=== PATIENT | female | born 1970 | race Caucasian/White ===

== ENCOUNTER 2016-08-11 14:43 | Emergency (ER) | payer MEDICARE, MEDICAID ==
[~2016-08-11] VITALS: Ht 160 cm; Wt 80.3 kg
[~2016-08-11 14:43] MED LIST: ALBU17AE3; AMOX-355 PO; ARIP2TAB10 PO; AZTH250C PO; BUDE6HFA; BUPR100T6 PO; CEFD300C3 PO; CIPR500T4 PO; CLON0.5T3; CYCL10TA9 PO; D50KC PO; DESV50TA; DIAZ5TAB3 PO; DICL50TA3 PO; EST.1TD TOP; FLUO40CA12; FLUT16SP22 NS; FLX20C; HYDR-2890 PO; HYDR-3583 PO; HYDR-3720 PO; HYDR1CAP2; HYOS0.378 PO; KETO-22; MECL-124 PO; METH15TA; METO-354 PO; MTC10T PO; MTF500T PO; MULT-608 PO; NF-ESOM40C PO; NITR-65 PO; ONDA-42 SL; ONDA8TAB13 PO; OXYC-12 PO; PHEN-639 PO; PHEN37.53 PO; PHEN37.555; PNT40TEC PO; PRCD5U GT; PROM12.59 PO; PROP10TA8; PROP10TA8 PO; SCOP1PAT TD; SULF1TAB38; SULF1TAB38 PO; TOPI100T PO; TRAM-21 PO; TRAM50TA2 PO; TRAZ150T42 PO; YAZ; ZLP10T PO; [UNRECOGNIZED DRUG - OTHER]; [UNRECOGNIZED DRUG - OTHER]; savella PO
--- OUTSIDE RECORDS SUMMARY | 2016-08-11 14:51 | XMS REPORT | Continuity of Care Document ---
Author Author Interface Organization Interface Address Unknown Phone Unavailable Problems Problem Status Onset Date Classification Date Reported Comments Source Carpal tunnel syndrome (disorder) Active Problem 2013 [facility] Obesity, unspecified Active Problem 01/26/2014 <sup>1</sup>Added based on documentation of BMI=45.5. [facility] Obesity (disorder) Active Problem 10/01/2013 <sup>1</sup>Added based on documentation of BMI=45.5. [facility] Medications Medication Details Route Status Patient Instructions Ordering Provider Order Date Source Savella 100 mg oral tablet =100 mg, 1 tab, PO, BID, # 60 tab, 3 Refill(s), tab Active [facility] Maxalt 10 mg oral tablet =10 mg, 1 tab, PO, ONCE, PRN for migraine headache, may repeat in 2 hours if response unsatisfactory, # 12 tab, 5 Refill(s) </br>may repeat in 2 hours if response unsatisfactory [facility] tizanidine 4 mg oral tablet 8 mg 2 tab, PO, Q8H, # 180 tab, 5 Refill(s) [facility] meloxicam 15 mg oral tablet =15 mg, 1 tab, PO, Daily, # 30 tab, 5 Refill(s) Active [facility] ProAir HFA 90 mcg/inh inhalation aerosol with adapter 2 puff, Inhalation, four times per day, # 1 EA, 11 Refill(s) Active [facility] Wellbutrin 100 mg oral tablet =100 mg, 1 tab, PO, BID , # 60 tab, 5 Refill(s), tab Active [facility] Flexeril 10 mg oral tablet =10 mg, 1 tab, PO, BID, # 60 tab, 5 Refill(s), Pharmacy [facility], tab Active [facility] Bentyl 20 mg oral tablet =20 mg, 1 tab, PO, four times per day, # 120 tab, 5 Refill(s), Pharmacy [facility], tab Active [facility] promethazine 25 mg oral tablet =25 mg, 1 tab, PO, BID , X 30 Days, # 60 tab, 1 Refill(s), Pharmacy [facility], tab Inactive [facility] Prozac 40 mg oral capsule =80 mg, 2 cap, PO, Daily, # 60 cap, 1 Refill(s), Pharmacy [facility], cap Active [facility] diazepam 5 mg oral tablet See Instructions, take 1 tablet by mouth as needed during daytime, 1 tablet by mouth at night, # 60 tab , 5 Refill(s), called to pharmacy (Rx), tab </br>take 1 tablet by mouth as needed during daytime, 1 tablet by mouth at night Inactive [facility] Zofran 4 mg oral tablet =4 mg, 1 tab, PO, Q8H, PRN for nausea/vomiting, X 5 Days, # 15 tab, 0 Refill(s) Inactive [facility] trazodone PO Active [facility] Nexium PO, Daily Active [facility] ProAir HFA 90 mcg inh puff, Inhalation, four times per day Active [facility] diclofenac sodium 75 mg oral enteric coated tablet = 75 mg, 1 tab, PO, BID, # 60 tab Active [facility] pravastatin 20 mg oral tablet =20 mg, 1 tab, PO, Daily , # 30 tab, 5 Refill(s), Pharmacy [facility], tab Active [facility] amitriptyline 100 mg oral tablet =100 mg, 1 tab, PO, QHS, # 30 tab, 5 Refill(s), tab Active [facility] Morrill 325 mg-10 mg oral tablet 1 tab, PO, Q6H, # 30 tab, 1 Refill(s) Inactive [facility] Allergies, Adverse Reactions, Alerts Substance Category Reaction Severity Reaction type Status Date Reported Comments Source doxycycline drug allergy Allergy Active [facility] Immunizations Immunization Date Given Site Status Last Updated Comments Source Results Order Name Results Value Reference Range Date Interpretation Comments Source Patient Viewable Results AST 23 IU/L 15 - 41 09/13/2013 [facility] Patient Viewable Results ALT 22 IU/L 14 - 54 09/13/2013 [facility] Patient Viewable Results Alkaline Phosphatase 85 IU/L 32 - 91 09/13/2013 [facility] Patient Viewable Results Total Protein 8.3 g/dL 6.1 - 7.9 09/13/2013 [facility] Patient Viewable Results Glucose 100 mg/dL 70 - [address] [facility] Patient Viewable Results HGB A1C 5.6 % 4.6 - 6.2 2013 [facility] Patient Viewable Results LDL 144 mg/dL 65 - 175 2013 <sup>1</sup>Result Note : Result added by Discern Expert [facility] Patient Viewable Results Cholesterol 224 mg/dL 0 - 200 [facility] Patient Viewable Results BUN 20 mg/dL 8 - 20 09/13/2013 [facility] Patient Viewable Results GFR -[place] null >=60 <sup>1</sup>Result Note: Resulted by GLB_CHEM_GFR rule. [facility] Patient Viewable Results GFR Non -[place] 80 mL/min/1.73m2 >=60 09/13/2013 < sup>2</sup>Result Note: Resulted by GLB_CHEM_GFR rule. [facility] Patient Viewable Results BUN/CREA RATIO 22.22 12.10 - 20.10 09/13/2013 [facility] Patient Viewable Results GLOBULIN 3.8 g/dL 2.6 - 3.2 [facility] Patient Viewable Results Triglyceride 132 mg/dL 00 - 150 09/30/2013 [facility] Patient Viewable Results HDL 54 mg/dL 40 - 60 09/30/2013 [facility] Patient Viewable Results VLDL 26 mg/dL 09/30/2013 <sup>2</sup>Result Note: Result added by Discern Expert <sup>3</sup>Interpretive Data: CORONARY HEART DISEASE RISK ESTIMATE </br> -----RELATIVE RISK--------- --- </br>TEST UNITS LOW MODERATE HIGH </br> </br>CHOLESTEROL mg/dL <200 200-239 >240 </br>HDL mg/dL >45 35-45 <35 </br> </br>OPTIMAL LDL: <100 mg/dL </br>ABOVE OPTIMAL LDL: 100-129 mg/dL </br>BORDERLINE HIGH LDL: 130-159 mg/dL </br>HIGH LDL: 160-189 mg/dL </br>VERY HIGH LDL: >190 mg/dL [facility] Patient Viewable Results Brain Natriuretic Peptide null 0 - 100 09/30/2013 [facility] Patient Viewable Results A/G RATIO 1.18 1.30 - 1.50 LOW [facility] Patient Viewable Results Glucose POC 82 mg/dL 64 - 108 [facility] Patient Viewable Results Troponin I 0.01 ng/mL 0.00 - 0.06 09/30/2013 <sup>4</sup> Interpretive Data: TROPONIN-I INTERPRETIVE GUIDELINES </br>Cardiac Troponin-I is a sensitive and specific marker of myocardialinjury. It typically begins </br>to rise 4 - 8 hours after the onset of symptoms, peaks at 12 hours, and remains elevated for at </br>least 5 - 9 days. </br> </br>A cardiac Troponin-I value of greater than 1.2 ng/ml is diagnostic of an acute myocardial </br>infarct in the appropriate clinical setting. [facility] Patient Viewable Results Troponin I 0.01 ng/mL 0.00 - 0.06 09/29/2013 <sup>5</sup> Interpretive Data: TROPONIN-I INTERPRETIVE GUIDELINES </br>Cardiac Troponin-I is a sensitive and specific marker of myocardialinjury. It typically begins </br>to rise 4 - 8 hours after the onset of symptoms, peaks at 12 hours, and remains elevated for at </br>least 5 - 9 days. </br> </br>A cardiac Troponin-I value of greater than 1.2 ng/ml is diagnostic of an acute myocardial </br>infarct in the appropriate clinical setting. [facility] Patient Viewable Results Eosinophils Absolute 0.3 /cmm 09/13/2013 [facility] Patient Viewable Results Immature Granulocytes Absolute 0.0 /cmm 09/13/2013 [facility] Patient Viewable Results Basophils Absolute 0.0 /cmm [facility] Patient Viewable Results Polys Absolute 5.8 /cmm 2013 [facility] Patient Viewable Results Lymphocytes Absolute 2.8 /cmm 09/13/2013 [facility] Patient Viewable Results Monocytes Absolute 0.1 /cmm [facility] Patient Viewable Results Basophils 0 % 0 - 2 09/13/2013 [facility] Patient Viewable Results Monocytes 1 % 1 - 9 09/13/2013 [facility] Patient Viewable Results Bands 7 % 0 - 10 09/13/2013 [facility] Patient Viewable Results Lymphocytes 31 % 22 - 50 2013 [facility] Patient Viewable Results Polys 58 % 45 - 74 09/13/2013 [facility] Patient Viewable Results Eosinophils 3 % 1 - 8 2013 [facility] Patient Viewable Results Myelocytes 0 % 09/13/2013 [facility] Patient Viewable Results Metamyelocytes 0 % 09/13/2013 [facility] Patient Viewable Results Plt Estimate Adequate <sup>6</sup> </br>(09/13/2013 09:40:00) <sup> </sup> Adequate 09/13/2013 <sup>6</sup>Interpretive Data: Adequate 150,000-400,000 </br>Decreased 50,000-150,000 </br>Marked Decrease <50,000 </br>Increased 400,000-600,000 </br>Marked Increase >600,000 [facility] Patient Viewable Results Promyelocytes 0 % 09/13/2013 [facility] Patient Viewable Results RBC Morph Normal </br>(09/13/2013 09:40:00) <sup> </sup> Normal 09/13/2013 [facility] Patient Viewable Results Blasts 0 % <=0 09/13/2013 [facility] Patient Viewable Results Baso 0.00 10^3/cmm 0.00 - 0.15 09/13/2013 [facility] Patient Viewable Results [place] 0.6 10^3/cmm 0.0 - 0.6 [facility] Patient Viewable Results Eos 0.10 10^3/cmm 0.00 - 0.70 [facility] Patient Viewable Results Lymph 2.5 10^3/cmm 1.2 - 3.5 [facility] Patient Viewable Results Eos % 1.3 % 1.0 - 8.0 2013 [facility] Patient Viewable Results [place] % 6.6 % 1.0 - 9.0 2013 [facility] Patient Viewable Results Baso % 0.6 % 0.0 - 2.0 2013 [facility] Patient Viewable Results Plt 302 10^3/cmm 150 - 400 2013 [facility] Patient Viewable Results MPV 8.6 FL 7.4 - 10.4 09/13/2013 [facility] Patient Viewable Results Gran 5.8 10^3/cmm 1.4 - 7.0 [facility] Patient Viewable Results RDW 14.0 % 11.5 - 14.5 2013 [facility] Patient Viewable Results Gran % 64.1 % 45.0 - 74.0 2013 [facility] Patient Viewable Results Lymph % 27.4 % 22.0 - 50.0 09/13 [facility] Patient Viewable Results MCV 88.5 FL 80.0 - 100.0 2013 [facility] Patient Viewable Results Hemoglobin 15.3 g/dL 12.0 - 16.0 09/13/2013 [facility] Patient Viewable Results Hematocrit 44.3 % 34.0 - 47.0 [facility] Patient Viewable Results MCHC 34.6 % 32.0 - 36.0 2013 [facility] Patient Viewable Results MCH 30.6 PG 27.0 - 34.0 2013 [facility] Patient Viewable Results WBC 9.00 10^3/cmm 4.30 - 10.80 [facility] Patient Viewable Results RBC 5.00 10^6/cmm 4.20 - 5.20 [facility] Patient Viewable Results Cholesterol 246 mg/dL 0 - 200 [facility] Patient Viewable Results Triglyceride 95 mg/dL 00 - 150 09/13/2013 [facility] Patient Viewable Results HDL 72 mg/dL 40 - 60 09/13/2013 [facility] Patient Viewable Results LDL 155 mg/dL 65 - 175 2013 <sup>3</sup>Result Note : Result added by Discern Expert [facility] Patient Viewable Results VLDL 19 mg/dL 09/13/2013 <sup>4</sup>Result Note: Result added by Discern Expert <sup>5</sup>Interpretive Data: CORONARY HEART DISEASE RISK ESTIMATE </br> -----RELATIVE RISK--------- --- </br>TEST UNITS LOW MODERATE HIGH </br> </br>CHOLESTEROL mg/dL <200 200-239 >240 </br>HDL mg/dL >45 35-45 <35 </br> </br>OPTIMAL LDL: <100 mg/dL </br>ABOVE OPTIMAL LDL: 100-129 mg/dL </br>BORDERLINE HIGH LDL: 130-159 mg/dL </br>HIGH LDL: 160-189 mg/dL </br>VERY HIGH LDL: >190 mg/dL [facility] Patient Viewable Results HGB A1C 5.6 % 4.6 - 6.2 2013 [facility] Patient Viewable Results Anion Gap 9.0 mmol/L 3.0 - 15.0 09/13/2013 [facility] Patient Viewable Results Calcium 9.3 mg/dL 8.6 - 10.3 [facility] Patient Viewable Results Chloride 103 mmol/L 101 - 111 [facility] Patient Viewable Results CO2 26 mmol/L 22 - 32 09/13/2013 [facility] Patient Viewable Results Sodium 138 mmol/L 136 - 144 [facility] Patient Viewable Results Potassium 4.3 mmol/L 3.6 - 5.1 09/13/2013 [facility] Patient Viewable Results Albumin 4.5 g/dL 3.5 - 4.8 09/13 [facility] Patient Viewable Results Creatinine 0.9 mg/dL 0.9 - 1.3 09/13/2013 [facility] Patient Viewable Results Bilirubin Total 0.5 mg/dL 0.3 - 1.2 09/13/2013 [facility] Vital Signs Vital Sign Value Date Comments Source Diastolic BP 78 mmHg 2013 [facility] Systolic BP 126 mmHg 2013 [facility] Resp. Rate 20 BRMIN 2013 [facility] Heart Rate 88 bpm 01/25/2014 [facility] Resp. Rate 20 BRMIN 2013 [facility] Heart Rate 68 bpm 12/13/2013 [facility] Diastolic BP 84 mmHg 2013 [facility] Systolic BP 136 mmHg 2013 [facility] Oxygen Therapy Room air </br>(09/30/2013 08:00:00) <sup> </sup> 09/30/2013 [facility] Mean Arterial Pressure 69 mmHg 09/30/2013 [facility] BP Site Right Arm </br>(09/30/2013 04:25:00) <sup> </sup> 09/30/2013 [facility] Heart Rate 63 bpm 09/30/2013 [facility] Temperature Oral 97.6 [degF] 09/30/2013 [facility] Oxygen Saturation 92 % 2013 [facility] Resp. Rate 18 BRMIN 2013 [facility] Diastolic BP 55 mmHg 2013 [facility] Systolic BP 97 mmHg 2013 [facility] Temperature Oral 97.6 [degF] 09/30/2013 [facility] Diastolic BP 58 mmHg 2013 [facility] Resp. Rate 18 BRMIN 2013 [facility] Heart Rate 57 bpm 09/30/2013 [facility] Systolic BP 94 mmHg 2013 [facility] Oxygen Therapy Room air </br>(09/30/2013 16:18:00) <sup> </sup> 09/30/2013 [facility] Oxygen Saturation 99 % 2013 [facility] Mean Arterial Pressure 70 mmHg 09/30/2013 [facility] BP Site Right Arm </br>(09/30/2013 16:18:00) <sup> </sup> 09/30/2013 [facility] Systolic BP 95 mmHg 2013 [facility] BP Site Right Arm </br>(09/30/2013 08:07:00) <sup> </sup> 09/30/2013 [facility] Diastolic BP 66 mmHg 2013 [facility] Oxygen Therapy Room air </br>(09/30/2013 08:07:00) <sup> </sup> 09/30/2013 [facility] Oxygen Saturation 96 % 2013 [facility] Mean Arterial Pressure 76 mmHg 09/30/2013 [facility] Temperature Oral 97.7 [degF] 09/30/2013 [facility] Resp. Rate 17 BRMIN 2013 [facility] Heart Rate 58 bpm 09/30/2013 [facility] Heart Rate 84 bpm 08/20/2013 [facility] Resp. Rate 18 BRMIN 2013 [facility] Diastolic BP 90 mmHg 2013 [facility] Systolic BP 126 mmHg 2013 [facility] Encounters Location Location Details Encounter Type Encounter Number Reason For Visit Attending Provider ADM Date DC Date Status Source Procedures Procedure Code Date Perfomer Comments Source
[2016-08-11] MEDS ORDERED: PANT40TA3 (16:47)
--- NOTE | 2016-08-11 17:16 | ED GI ---
General Chief Complaint: Abdominal/GI Problems Stated Complaint: TROUBLE URINATING Nursing Triage Note: pt reports she had a gastric sleeve done 01/01/16. she has had difficulty having BM's, especially since she was taking supplements for vit d et calcium. stool softeners, laxatives, suppositories, enemas not relieving constipation. reports her last BM was 1 week ago. unable to take in adequate amount of fluid. also takes hydrocodone for fibromyalgia et osteoarthritis. Sepsis Screen: No Definite Risk Source of Information: Patient Exam Limitations: No Limitations History of Present Illness Time Seen By Provider: 17:08 Initial Comments Patient presents with a week of constipation despite using enemas and MiraLAX and other laxatives. She reports she is unable to pass several hardball stools but this is a chronic problem for her because of her tramadol and [place] use. She takes a 10 x 3 25 [place] MARVIN as needed typically about 5 a week. She has extensive history of hysterectomy DNC endometriosis surgery, gallbladder removal and in late 2015 she had a sleeve gastrectomy. She denies any vomiting but she has had occasional off and on nausea and uses her Zofran as needed last dose was this morning. No fevers, chills, rash, abdominal pain however she is mildly tender left upper quadrant and left lower quadrant. Allergies and Home Medications Allergies Coded Allergies: doxycycline (Verified Allergy, Unknown, 05/29/08) Home Medications 100 MG PO BID (Reported) NEEDED (Reported) (Reported) Albuterol 17 Gm Inh NEEDED (Reported) Aripiprazole 2 Mg Tablet 2 MG PO DAILY (Reported) Bisacodyl 10 Mg Supp.rect #10 20 MG RC BID PRN PRN CONSTIPATION Prescribed by: ABBY MENENDEZ on 08/11/161812 Cephalexin 500 Mg Capsule #10 500 MG PO BID Prescribed by: ABBY MENENDEZ on 08/11/161812 Cyclobenzaprine Hcl 10 Mg Tablet 1 EACH PO BID (Reported) Diazepam 5 Mg Tablet 1 TAB PO BID PRN PRN (Reported) Docusate Sodium 100 Mg Capsule #10 100 MG PO BID Prescribed by: ABBY MENENDEZ on 08/11/161812 Hydrocodone Bit/Acetaminophen 1 Each Tablet 1 EACH PO BID PRN PRN PAIN (Reported ) Meclizine Hcl 25 Mg Tab 1 TAB PO Q6 PRN PRN (Reported) Meclizine Hcl 25 Mg Tab #30 1-2 TAB PO Q 4-6 HOURS PRN PRN DIZZINESS Prescribed by: ELSY WEBB on 09/10/14 1046 Mineral Oil 1 Ea Enem #2 1 EA RC BID Prescribed by: ABBY MENENDEZ on 08/11/161812 Ondansetron 8 Mg Tab.rapdis #10 8 MG PO Q6H PRN PRN NAUSEA/VOMITING Prescribed by: ALICE ADAMS on 03/01/152242 Ondansetron 4 Mg Tab.rapdis #20 4 MG PO Q6H PRN PRN NAUSEA Prescribed by: ABBY MENENDEZ on 08/11/161812 Pantoprazole Sodium 40 Mg Tablet. #90 (Reported) Phenazopyridine HCl 100 Mg Tablet #30 1-2 TAB PO Q8H PRN PRN PAIN Prescribed by: ALICE ADMAS on 03/01/152240 Promethazine Hcl 12.5 Mg Tablet 25 MG PO NEEDED (Reported) Propranolol Hcl 10 Mg Tablet 1 EACH PO TID PRN PRN BLOOD PRESSURE (Reported) Tramadol HCl 50 Mg Tablet 50 MG PO TID (Reported) Review of Systems Constitutional: No chills, No diaphoresis EENTM: No Ear Pain, No Mouth Pain, No Nose Congestion Respiratory: Denies Cough, Denies Shortness of Air Cardiovascular: Denies Chest Pain, Denies Edema Gastrointestinal: See HPIDenies Abdomen Distended, Denies Blood Streaked Stools, ConstipatedDenies Diarrhea, Denies Difficulty Swallowing, Nausea Poor Appetite Poor Fluid IntakeDenies Vomiting Genitourinary: Denies Burning, Denies Discharge, Denies Drainage Musculoskeletal: No back pain, No joint pain Skin: No pruritus, No rash Psychiatric/Neurological: Denies Headache, Denies Weakness Endocrine: Denies Unexplained Weight Gain, Denies Unexplaned Weight Loss Past Bcgnmwd-Yktyif-Vjpkoz Hx Patient Social History Alcohol Use: Occasionally Uses Recreational Drug Use: No Smoking Status: Never a Smoker Recent Foreign Travel: No Contact w/Someone Who Travel: No Recent Infectious Disease Expo: No Recent Hopitalizations: No Immunizations Up To Date Date of Influenza Vaccine: Apr 23, 2016 Seasonal Allergies Seasonal Allergies: Yes Surgeries HX Surgeries: Yes (EXPL LAP, D&C, gastric sleeve) Surgeries: Abdominal, Adenoidectomy, Appendectomy, Gallbladder, Hysterectomy, Oophorectomy, Tonsillectomy Respiratory Hx Respiratory Disorders: Yes Respiratory Disorders: Asthma Cardiovascular Hx Cardiac Disorders: Yes Cardiac Disorders: High Cholesterol Neurological Hx Neurological Disorders: Yes Neurological Disorders: Headaches /Migraines Reproductive System Hx Reproductive Disorders: Yes (ovarian cyst, fluid filled mass in uterus) Sexually Transmitted Disease: No Female Reproductive Disorders: 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: Hysterectomy Genitourinary Hx Genitourinary Disorders: No Gastrointestinal Hx Gastrointestinal Disorders: Yes Gastrointestinal Disorders: Gastroesophageal Reflux, Irritable Bowel Musculoskeletal Hx Musculoskeletal Disorders: Yes (CHRONIC GENERALIZED PAIN) Musculoskeletal Disorders: Arthritis, Fibromyalgia, Rheumatoid Arthritis, Scoliosis Endocrine Hx Endocrine Disorders: Yes ("GLUCOSE INTOLERANCE" PER PT, OBESITY) Endocrine Disorders: Lupus HEENT HX ENT Disorders: No Cancer Hx Cancer: No Psychosocial Hx Psychiatric Problems: Yes Behavioral Health Disorders: Anxiety, Bipolar, Depression Integumentary HX Skin/Integumentary Disorder: No Blood Transfusions Hx Blood Disorders: No Family Medical History Significant Family History: No Pertinent Family Hx Physical Exam Vital Signs VS - Last 72 Hours, by Label 08/11/16 15:17 Temp 98.1 Pulse 92 Resp 18 B/P 134/91 Capillary Refill : Less Than 3 Seconds General Appearance: WD/WN no apparent distress HEENT: normal ENT inspection pharynx normal Neck: non-tender supple normal inspection Respiratory: lungs clear normal breath sounds no respiratory distress Cardiovascular: normal peripheral pulses regular rate, rhythm no edema Gastrointestinal: normal bowel sounds soft tenderness (left upper quadrant and left lower quadrant) Extremities: normal range of motion non-tender Back: No CVA tenderness (R), CVA tenderness (L) Neurologic/Psychiatric: alert oriented x 3 Skin: normal color warm/dry Progress/Results/Core Measures Results/Orders Lab Results Laboratory Tests Test 08/11/16 17:36 Range/Units Urine Bacteria LARGE H /HPF Urine Bilirubin 1+ H NEGATIVE Urine Calcium Oxalate Crystals FEW H /LPF Urine Casts NONE /LPF Urine Clarity SLIGHTLY CLOUDY Urine Color NERY H Urine Crystals PRESENT H /LPF Urine Culture Indicated YES Urine Glucose (UA) NEGATIVE NEGATIVE Urine Ketones 2+ H NEGATIVE Urine Leukocyte Esterase 3+ H NEGATIVE Urine Mucus NEGATIVE /LPF Urine Nitrite POSITIVE H NEGATIVE Urine Protein 2+ H NEGATIVE Urine RBC 0-2 /HPF Urine RBC (Auto) NEGATIVE NEGATIVE Urine Specific [place] 1.025 H 1.016-1.022 Urine Squamous Epithelial Cells 25-50 H /HPF Urine Urobilinogen 1 NORMAL MG/DL Urine WBC 10-25 H /HPF Urine pH 5 5-9 My Orders Orders-ABBY MENENDEZ Ua Culture If Indicated (08/11/16 17:16) Abdomen/Kub 1view (08/11/16 17:16) Urine Culture (08/11/16 17:36) Ceftriaxone Injection (Rocephin Injectio (08/11/16 18:45) Lidocaine 1% Injection (Xylocaine 1% Inj (08/11/16 18:45) Vital Signs/I&O Vital Sign - Last 12Hours 08/11/16 15:17 Temp 98.1 Pulse 92 Resp 18 B/P 134/91 Blood Pressure Mean: 105 Progress Note : Time: 17:50 Progress Note Multiple surgeries and low volume intake secondary to gastrectomy. Patient is set up for chronic constipation and is not drinking adequate fluids states she only gets about 32 ounces or less on the day. She will be given Dulcolax and then sent home with a bowel regimen as long as her abdominal x-ray and UA checked out. Pharmacies are closed so we gave her 250 mg IM Rocephin. Diagnostic Imaging Diagonstic Imaging: Xray Plain Films/CT/US/NM/MRI: abdomen Comments Bowels distended with copious stool from ascending to rectum. Reviewed: Reviewed by Me Departure Impression Impression: Primary Impression: UTI (urinary tract infection) Qualified Code: N30.00 - Acute cystitis without hematuria Additional Impression: Constipation Qualified Code: K59.03 - Drug induced constipation Disposition: 01 HOME, SELF-CARE Condition: Stable Departure-Patient Inst. Decision time for Depature: 18:07 Referrals: ANN BOWERS DO (PCP/Family) Primary Care Physician Patient Instructions: Constipation, Adult (DC), Urinary Tract Infection, Adult (DC) Add. Discharge Instructions: You have clinically evident constipation that will be treated with 100 mg of Dulcolax by mouth at the same time as a 20 mg suppository of Dulcolax followed by a mineral oil enema. Attempt to retain the enema as long as possible up to 45 minutes. Drink plenty of fluids it is important to try and do all of these maneuvers together. Use Zofran as necessary for nausea. Be on a liquid diet until you get good resolution of your constipation. Do not take your Bentyl or other IBS constipation-type medicines while you are constipated. You should refrain from using opiates as this will further worsen your constipation. You may resume them after you have resolve this constipation. You also have a urinary tract infection and have been given an antibiotic called Keflex to be taken twice daily by mouth with food for 5 days. If at any time your symptoms get worse or you have new symptoms you should return to the ER or your primary care physician as appropriate. All discharge instructions reviewed with patient and/or family. Voiced understanding. Scripts Cephalexin (Keflex)500 Mg [id number] Mg PO BID #10 CAP Ref 0 Prov:ABBY MENENDEZ 08/11/16 Ondansetron (Zofran Odt)4 Mg Tab.rapdis4 Mg PO Q6H PRN NAUSEA #20 TAB Ref 0 Prov:ABBY MENENDEZ 08/11/16 Mineral Oil (Mineral Oil Enema)1 Ea Enem1 Ea RC BID Constipation #2 EA Ref 0 Prov:ABBY MENENDEZ 08/11/16 Docusate Sodium (Dulcolax Stool Softener)100 Mg [id number] Mg PO BID Constipation #10 CAP Ref 0 Prov:ABBY MENENDEZ 08/11/16 Bisacodyl (Dulcolax)10 Mg Supp.rect20 Mg RC BID PRN CONSTIPATION #10 SUPP.RECT Ref 0 Prov:ABBY MENENDEZ 08/11/16 Copy Copies To 1: ANN BOWERS TITUS J Aug 11, 2016 17:16
[2016-08-11 17:45] LABS: KETONES,URINE 2+ (NEGATIVE); LEUKOCYTE ESTERASE ,URINE 3+ (NEGATIVE); NITRITE,URINE POSITIVE (NEGATIVE); PH,URINE 5 (5-9); PROTEIN,URINE 2+ (NEGATIVE); UROBILINOGEN,URINE 1 MG/DL (NORMAL)
[2016-08-11 17:53] LABS: BILIRUBIN,URINE 1+ (NEGATIVE)
[2016-08-11 17:54] LABS: CALCIUM OXALATE CRYSTALS,UR FEW /LPF; SQUAMOUS EPITHELIAL CELL,UR 25-50 /HPF
[2016-08-11] MEDS ORDERED: DOCU-163 PO (18:13)
[2016-08-11] MEDS ORDERED: BISA10SU58 RC (18:13)
[2016-08-11] MEDS ORDERED: MO133EN RC (18:13)
[2016-08-11] MEDS ORDERED: CEPH-507 PO (18:13)
[2016-08-11] MEDS ORDERED: ONDA4TAB8 PO (18:13)
--- NOTE | 2016-08-11 18:26 | Diagnostic Imaging Report ---
INDICATION: Constipation COMPARISON: None FINDINGS: Single supine radiographic view of the abdomen was obtained and demonstrates nonobstructive small bowel gas pattern. Mild amount of air and stool are seen scattered throughout the colon. No large collection of free intraperitoneal air is seen. No abnormal extraosseous calcifications or radiopaque foreign bodies are identified. Bony structures are age-appropriate. IMPRESSION: 1. Nonobstructive small bowel gas pattern. 2. Mild colonic air and stool. Dictated by: Dictated on workstation # [id number]
[2016-08-11] MEDS ORDERED: cefTRIAXone 250 MG (ROCEPHIN) VIAL IM ONE (18:45)
[2016-08-11] MEDS ORDERED: LIDOCAINE 1% INJ 20 ML (XYLOCAINE) VIAL INJ ONE (18:45)
[2016-08-11 18:57] VITALS: BP 134/91
== END 2016-08-11 18:31 | disposition home or self-care (01) ==
LOC: EDUNIT# 14:43 → ER 14:45
DX: K59.03 Drug induced constipation (principal); N39.0 Urinary tract infection, site not specified; E66.9 Obesity, unspecified; M79.7 Fibromyalgia; Z79.891 Long term (current) use of opiate analgesic; Z79.899 Other long term (current) drug therapy; Z98.84 Bariatric surgery status
CPT/HCPCS: 74000; 81000; 87077; 87088; 87186; 96372; 99284

== ENCOUNTER 2016-11-14 17:39 | Emergency (ER) | payer MEDICARE, MEDICAID ==
[~2016-11-14] VITALS: Ht 160 cm; Wt 80.3 kg
[~2016-11-14 17:39] MED LIST changes: +BISA10SU58 RC; +CEPH-507 PO; +DOCU-163 PO; +MO133EN RC; +ONDA4TAB8 PO; +PANT40TA3
[2016-11-14] MEDS ORDERED: MELO15TA39 (17:53)
[2016-11-14] MEDS ORDERED: MILN100T (17:53)
[2016-11-14] MEDS ORDERED: ONDANSETRON 4 MG/2 ML (SDV) Z0FRAN IVP ONE (18:00)
--- NOTE | 2016-11-14 18:13 | ED General ---
General Chief Complaint: General Problems/Pain Stated Complaint: PAIN ALL OVER/HEADACHE/SLEEPY/CHEST TIGHTNESS Nursing Triage Note: patient reports being nauseated with headache and generalized body aches and pains. patient reports was outside earlier about 45 minutes and didn't feel well so went inside to take a hydrocodone but couldn't find any so had to take a tramadol. reports woke up from nap and felt nauseated and took a zofran ODT without relief. Nursing Sepsis Screen: No Definite Risk Source of Information: Patient History of Present Illness Time Seen by Provider: 18:00 Initial Comments PT ARRIVES VIA POV FROM HOME--DROVE SELF HERE STATES SHE SAT AT THE PARK FOR 45 MINUTES TODAY,WATCHING HER GRANDKIDS PLAY AROUND NOON, AND STARTED "FEELING BAD" STATES SHE WENT INSIDE TO TAKE A HYDROCODONE, BUT COULDN'T FIND THEM SO TOOK A TRAMADOL AROUND 1300, WENT TO SLEEP AND WHEN SHE WOKE UP SHE STILL "FELT BAD" C/O HEADACHE--IS A CHRONIC PROBLEM C/O NAUSEA, VOMITED A LITTLE, BUT MOSTLY IS DRY HEAVES--CHRONIC PROBLEM--TOOK A ZOFRAN, WITHOUT RELIEF. STATES PHENERGAN WORKS BETTER, BUT SHE DOES NOT HAVE ANY AT HOME C/O GENERALIZED PAIN-"ALL MY JOINTS, MY MUSCLES"--ALSO A CHRONIC PROBLEM. TAKES HYDROCODONE AND TRAMADOL, BUT HAS NOT TAKEN ANY HYDROCODONE TODAY AND ONLY TOOK 1 DOSE OF TRAMADOL TODAY AT NOON C/O BEING VERY TIRED AND TAKING A NAP DIDN'T HELP CHEST FELT TIGHT EARLIER, BUT NOT NOW NO SHORTNESS OF BREATH NO FEVER, URI SYMPTOMS OR RECENT ILLNESS ALL THESE SYMPTOMS ARE CHRONIC/DAILY ISSUES, "JUST WORSE" TODAY SINCE SHE WAS OUTSIDE IN THE [place] STATES SHE HAS LUPUS AND FIBROMYALGIA STATES SHE WOKE UP FEELING "REALLY GOOD--BETTER THAN NORMAL" STATES SHE HAD OATMEAL THIS AM, BUT HAS NOT HAD ANYTHING ELSE TO EAT TODAY AND VERY LITTLE TO DRINK VOIDING NORMAL AMOUNT HAD BM TODAY--HAS CHRONIC CONSTIPATION AND ONLY GOES EVERY 3-4 DAYS PCP: DR. BOWERS--SEES EVERY 3 WEEKS, NEXT APPOINTMENT IS IN 1 WEEK Allergies and Home Medications Allergies Coded Allergies: doxycycline (Verified Allergy, Unknown, 05/29/08) Home Medications Albuterol 17 Gm Inh, NEEDED, (Reported) Aripiprazole 2 Mg Tablet, 2 MG PO DAILY, (Reported) Bisacodyl 10 Mg Supp.rect, 20 MG RC BID PRN for CONSTIPATION, #10 Ref 0 Prescribed by: ABBY MENENDEZ on 08/11/161812 Cyclobenzaprine Hcl 10 Mg Tablet, 1 EACH PO BID, (Reported) Diazepam 5 Mg Tablet, 1 TAB PO BID PRN, (Reported) Docusate Sodium 100 Mg Capsule, 100 MG PO BID, #10 Ref 0 Prescribed by: ABBY MENENDEZ on 08/11/161812 Hydrocodone Bit/Acetaminophen 1 Each Tablet, 1 EACH PO BID PRN for PAIN, ( Reported) Meclizine Hcl 25 Mg Tab, 1 TAB PO Q6 PRN, (Reported) Meloxicam 15 Mg Tablet, #30 (Reported) Milnacipran HCl 100 Mg Tablet, #180 (Reported) Mineral Oil 1 Ea Enem, 1 EA RC BID, #2 Ref 0 Prescribed by: ABBY MENENDEZ on 08/11/161812 Ondansetron 8 Mg Tab.rapdis, 8 MG PO Q6H PRN for NAUSEA/VOMITING, #10 Ref 0 Prescribed by: ALICE ADAMS on 03/01/152242 Ondansetron 4 Mg Tab.rapdis, 4 MG PO Q6H PRN for NAUSEA, #20 Ref 0 Prescribed by: ABBY MENENDEZ on 08/11/161812 Pantoprazole Sodium 40 Mg Tablet., #90 (Reported) Promethazine Hcl 12.5 Mg Tablet, 25 MG PO NEEDED, (Reported) Propranolol Hcl 10 Mg Tablet, 1 EACH PO TID PRN for BLOOD PRESSURE, (Reported) Tramadol HCl 50 Mg Tablet, 50 MG PO TID, (Reported) Constitutional: No chills, No diaphoresis, No dizziness, No fever, malaise EENTM: no symptoms reported Respiratory: no symptoms reported Cardiovascular: chest pain, No edema, No palpitations, No syncope, No vascular heart diseas Gastrointestinal: see HPI, No abdominal pain, constipation, No diarrhea, loss of appetite, nausea, vomiting Genitourinary: no symptoms reported Musculoskeletal: see HPI Skin: no symptoms reported Psychiatric/Neurological: See HPI, Headache, Denies Numbness, Denies Paresthesia, Denies Seizure, Denies Tingling, Denies Tremors, Denies Weakness Hematologic/Lymphatic: No Symptoms Reported Immunological/Allergic: no symptoms reported Past Aiaaoxf-Ftpiut-Kbpguh Hx Patient Social History Alcohol Use: Occasionally Uses Recreational Drug Use: No Smoking Status: Never a Smoker Recent Foreign Travel: No Contact w/Someone Who Travel: No Recent Infectious Disease Expo: No Recent Hopitalizations: No Immunizations Up To Date Date of Influenza Vaccine: Apr 23, 2016 Seasonal Allergies Seasonal Allergies: Yes Surgeries HX Surgeries: Yes (EXPL LAP, D&C, HYSTEROSCOPY, HYST/BSO; GASTRIC SLEEVE [address] 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 Genitourinary Hx Genitourinary Disorders: Yes Genitourinary Disorders: Bladder Infection Gastrointestinal Hx Gastrointestinal Disorders: Yes Gastrointestinal Disorders: Gastroesophageal Reflux, Irritable Bowel Musculoskeletal Hx Musculoskeletal Disorders: Yes (CHRONIC GENERALIZED PAIN) Musculoskeletal Disorders: Arthritis, Fibromyalgia, Rheumatoid Arthritis, Scoliosis Endocrine Hx Endocrine Disorders: Yes ("GLUCOSE INTOLERANCE" PER PT--WAS DIABETIC ON METFORMIN, BUT NO LONGER TAKES IT SINCE LOSING WEIGHT, OBESITY) Endocrine Disorders: Lupus HEENT HX ENT Disorders: No Cancer Hx Cancer: No Psychosocial Hx Psychiatric Problems: Yes Behavioral Health Disorders: Anxiety, Bipolar, Depression Integumentary HX Skin/Integumentary Disorder: No Blood Transfusions Hx Blood Disorders: No Physical Exam Vital Signs Vital Sign - Last 12Hours 11/14/16 17:48 Temp 98.6 Pulse 85 Resp 24 B/P (MAP) 134/93 Pulse Ox 99 O2 Delivery Room Air Capillary Refill : Less Than 3 Seconds General Appearance: No Apparent Distress, WD/WN HEENT: PERRL/EOMI Neck: Full Range of Motion, Normal Inspection, Non Tender, Supple Respiratory: Normal Breath Sounds, No Accessory Muscle Use, No Respiratory Distress Cardiovascular: Regular Rate, Rhythm, No Edema, No JVD, No Murmur, Normal Peripheral Pulses Gastrointestinal: Normal Bowel Sounds, No Organomegaly, No Pulsatile Mass, Non Tender, Soft Back: Other (GENERALIZED TENDERNESS) Extremity: Normal Range of Motion, No Calf Tenderness, No Pedal Edema, Other (C /O PAIN EVERYWHERE SHE IS TOUCHED, MOST TENDER ON RIGHT KNEE) Neurologic/Psychiatric: Alert, Oriented x3, No Motor/Sensory Deficits, serials librarian II- XII Norm as Tested, Other (FLAT/DEPRESSED AFFECT) Reflexes: 2+ Bicep (R), 2+ Bicep (L), 2+ Knee (R), 2+ Knee (L) Skin: Normal Color, Warm/Dry Progress/Results/Core Measures Results/Orders Lab Results Laboratory Tests Test 11/14/16 17:50 11/14/16 18:24 Range/Units White Blood Count 7.3 4.3-11.0 10^3/uL Red Blood Count 4.23 L 4.35-5.85 10^6/uL Hemoglobin 12.9 11.5-16.0 G/DL Hematocrit 38 35-52 % Mean Corpuscular Volume 90 80-99 FL Mean Corpuscular Hemoglobin 31 25-34 PG Mean Corpuscular Hemoglobin Concent 34 32-36 G/DL Red Cell Distribution Width 12.4 10.0-14.5 % Platelet Count 225 130-400 10^3/uL Mean Platelet Volume 9.4 7.4-10.4 FL Neutrophils (%) (Auto) 46 42-75 % Lymphocytes (%) (Auto) 43 12-44 % Monocytes (%) (Auto) 7 0-12 % Eosinophils (%) (Auto) 3 0-10 % Basophils (%) (Auto) 0 0-10 % Neutrophils # (Auto) 3.4 1.8-7.8 X 10^3 Lymphocytes # (Auto) 3.2 1.0-4.0 X 10^3 Monocytes # (Auto) 0.5 0.0-1.0 X 10^3 Eosinophils # (Auto) 0.2 0.0-0.3 10^3/uL Basophils # (Auto) 0.0 0.0-0.1 10^3/uL Prothrombin Time 13.4 12.2-14.7 SEC INR Comment 1.1 0.8-1.4 Activated Partial Thromboplast Time 27 24-35 SEC Sodium Level 144 135-145 MMOL/L Potassium Level 3.8 3.6-5.0 MMOL/L Chloride Level 108 H 98-107 MMOL/L Carbon Dioxide Level 29 21-32 MMOL/L Anion Gap 7 5-14 MMOL/L Blood Urea Nitrogen 17 7-18 MG/DL Creatinine 0.85 0.60-1.30 MG/DL Estimat Glomerular Filtration Rate > 60 BUN/Creatinine Ratio 20 Glucose Level 82 70-105 MG/DL Calcium Level 9.1 8.5-10.1 MG/DL Magnesium Level 2.5 H 1.8-2.4 MG/DL Total Bilirubin 0.4 0.1-1.0 MG/DL Aspartate Amino Transf (AST/SGOT) 23 5-34 U/L Alanine Aminotransferase (ALT/SGPT) 19 0-55 U/L Alkaline Phosphatase 67 40-136 U/L Total Creatine Kinase 158 29-168 U/L Creatine Kinase MB 1.6 <6.6 NG/ML Troponin I < 0.30 <0.30 NG/ML B-Type Natriuretic Peptide 19.7 <100.0 PG/ML Total Protein 7.2 6.4-8.2 G/DL Albumin 4.1 3.2-4.5 G/DL Amylase Level 47 25-125 U/L TSH Robson Testing 1.45 0.35-4.94 UIU/ML Urine Color YELLOW Urine Clarity CLEAR Urine pH 6 5-9 Urine Specific [place] 1.010 L 1.016-1.022 Urine Protein NEGATIVE NEGATIVE Urine Glucose (UA) NEGATIVE NEGATIVE Urine Ketones NEGATIVE NEGATIVE Urine Nitrite NEGATIVE NEGATIVE Urine Bilirubin NEGATIVE NEGATIVE Urine Urobilinogen NORMAL NORMAL MG/DL Urine Leukocyte Esterase 1+ H NEGATIVE Urine RBC (Auto) NEGATIVE NEGATIVE Urine RBC NONE /HPF Urine WBC 0-2 /HPF Urine Squamous Epithelial Cells 2-5 /HPF Urine Crystals NONE /LPF Urine Bacteria TRACE /HPF Urine Casts NONE /LPF Urine Mucus NEGATIVE /LPF Urine Culture Indicated NO Urine Opiates Screen NEGATIVE NEGATIVE Urine Oxycodone Screen NEGATIVE NEGATIVE Urine Methadone Screen NEGATIVE NEGATIVE Urine Propoxyphene Screen NEGATIVE NEGATIVE Urine Barbiturates Screen NEGATIVE NEGATIVE Ur Tricyclic Antidepressants Screen NEGATIVE NEGATIVE Urine Phencyclidine Screen NEGATIVE NEGATIVE Urine Amphetamines Screen NEGATIVE NEGATIVE Urine Methamphetamines Screen NEGATIVE NEGATIVE Urine Benzodiazepines Screen POSITIVE H NEGATIVE Urine Cocaine Screen NEGATIVE NEGATIVE Urine Cannabinoids Screen NEGATIVE NEGATIVE My Orders Orders - JONELSY K DO Saline Lock/Iv-Start (11/14/16 18:00) Ekg Tracing (11/14/16 18:00) Monitor-Rhythm Ecg Trace Only (11/14/16 18:00) Amylase (11/14/16 18:00) BNP (11/14/16 18:00) Cbc With Automated Diff (11/14/16 18:00) Comprehensive Metabolic Panel (11/14/16 18:00) Creatine Kinase (11/14/16 18:00) Creatine Kinase Mb (11/14/16 18:00) Drug Screen Stat (Urine) (11/14/16 18:00) Magnesium (11/14/16 18:00) Protime With Inr (11/14/16 18:00) Partial Thromboplastin Time (11/14/16 18:00) Thyroid Analyzer (11/14/16 18:00) Troponin I (11/14/16 18:00) Ua Culture If Indicated (11/14/16 18:00) Chest Pa/Lat (2 View) (11/14/16 18:00) Ondansetron Injection (Zofran Injectio (11/14/16 18:00) Methylprednisolone Sod Succ (Solu-Medrol (11/14/16 19:00) Medications Given in ED Current Medications Medications Dose Ordered Sig/Sherie Route Start Time Stop Time Status Last Admin Dose Admin Ondansetron HCl 8 mg ONCE ONCE IVP 11/14/16 18:00 11/14/16 18:03 DC 11/14/16 18:06 8 MG Vital Signs/I&O Vital Sign - Last 12Hours 11/14/16 17:48 Temp 98.6 Pulse 85 Resp 24 B/P (MAP) 134/93 Pulse Ox 99 O2 Delivery Room Air Blood Pressure Mean: 107 Progress Note : Progress Note SYMPTOMS IMPROVED AT DISMISSAL ECG Initial ECG Impression Time: 17:52 Initial ECG Rate: 85 Initial ECG Rhythm: Normal Sinus Initial ECG Comparisson: Unchanged Diagnostic Imaging Comments CXR--NO ACUTE PROCESS, PER RADIOLOGIST REPORT @ 1839 Reviewed: Reviewed by Me Departure Impression Impression: Primary Impression: Generalized pain Additional Impressions: Chronic headaches Chronic pain Disposition: HOME, SELF-CARE Condition: Improved Departure-Patient Inst. Referrals: ANN BOWERS DO (PCP/Family) Primary Care Physician Patient Instructions: CHRONIC PAIN Add. Discharge Instructions: LOTS OF CLEAR LIQUIDS---WATER, BROTH, JELLO, GATORADE TAKE YOUR HOME MEDICATIONS PRESCRIBED, INCLUDING YOUR PAIN MEDICATIONS AND NAUSEA MEDICATIONS FOLLOW UP WITH DR. BOWERS TOMORROW IF NO BETTER All discharge instructions reviewed with patient and/or family. Voiced understanding. Scripts Methylprednisolone (Medrol) 4 Mg Tab.ds.pk 4 MG PO UD, #1 PKG Prov: ELSY WEBB DO 11/14/16 ELSY WEBB DO November 14, 2016 18:13
[2016-11-14 18:16] LABS: BASOPHILS % (AUTO) 0 % (0-10); EOSINOPHILS # (AUTO) 0.2 10^3/uL (0.0-0.3); EOSINOPHILS % (AUTO) 3 % (0-10); LYMPHOCYTES # (AUTO) 3.2 X 10^3 (1.0-4.0); LYMPHOCYTES % (AUTO) 43 % (12-44); MEAN CORPUSCULAR HEMOGLOBIN 31 PG (25-34); MEAN CORPUSCULAR HGB CONC 34 G/DL (32-36); MEAN CORPUSCULAR VOLUME 90 FL (80-99); MEAN PLATELET VOLUME 9.4 FL (7.4-10.4); MONOCYTES # (AUTO) 0.5 X 10^3 (0.0-1.0); MONOCYTES % (AUTO) 7 % (0-12); NEUTROPHILS # (AUTO) 3.4 X 10^3 (1.8-7.8); NEUTROPHILS % (AUTO) 46 % (42-75); PLATELET COUNT 225 10^3/uL (130-400); RED BLOOD COUNT 4.23 10^6/uL (4.35-5.85); RED CELL DISTRIBUTION WIDTH 12.4 % (10.0-14.5); WHITE BLOOD COUNT 7.3 10^3/uL (4.3-11.0)
[2016-11-14 18:19] LABS: INR 1.1 (0.8-1.4); PROTHROMBIN TIME PATIENT 13.4 SEC (12.2-14.7)
--- NOTE | 2016-11-14 18:19 | Diagnostic Imaging Report ---
Indication: Chest tightness starting earlier today. Discussion: Two views of the chest were obtained, comparison 03/01/2015. No focal consolidation, pleural fluid, or pneumothorax. Stable normal heart size. Age-related degenerative changes are present within the thoracic spine. Impression: 1. No acute cardiopulmonary process. Dictated by: Dictated on workstation # [id number]
[2016-11-14 18:29] LABS: ALANINE AMINOTRANSFERASE 19 U/L (0-55); ALBUMIN 4.1 G/DL (3.2-4.5); AMYLASE 47 U/L (25-125); ANION GAP 7 MMOL/L (5-14); ASPARTATE AMINO TRANSFERASE 23 U/L (5-34); BILIRUBIN,TOTAL 0.4 MG/DL (0.1-1.0); BLOOD UREA NITROGEN 17 MG/DL (7-18); BUN/CREATININE RATIO 20; CALCIUM 9.1 MG/DL (8.5-10.1); CARBON DIOXIDE 29 MMOL/L (21-32); CHLORIDE 108 MMOL/L (98-107); CREATINE KINASE 158 U/L (29-168); CREATININE SERUM 0.85 MG/DL (0.60-1.30); GFR ESTIMATED > 60; GLUCOSE 82 MG/DL (70-105); MAGNESIUM 2.5 MG/DL (1.8-2.4); POTASSIUM 3.8 MMOL/L (3.6-5.0); SODIUM 144 MMOL/L (135-145); TOTAL PROTEIN 7.2 G/DL (6.4-8.2)
[2016-11-14 18:48] LABS: TROPONIN I < 0.30 NG/ML (<0.30)
[2016-11-14 18:53] LABS: BILIRUBIN,URINE NEGATIVE (NEGATIVE); KETONES,URINE NEGATIVE (NEGATIVE); LEUKOCYTE ESTERASE ,URINE 1+ (NEGATIVE); NITRITE,URINE NEGATIVE (NEGATIVE); PH,URINE 6 (5-9); PROTEIN,URINE NEGATIVE (NEGATIVE); UROBILINOGEN,URINE NORMAL (NORMAL); WBC,URINE 0-2 /HPF
[2016-11-14] MEDS ORDERED: METH4TAB PO (18:57)
[2016-11-14] MEDS ORDERED: methylPREDNISolone 125 MG (Solu-MEDROL) VIAL IVP ONE (19:00)
[2016-11-14 19:06] VITALS: BP 109/82
== END 2016-11-14 19:06 | disposition home or self-care (01) ==
LOC: EDUNIT# 17:39 → ER 17:42
DX: R52 Pain, unspecified (principal); R51 Headache; G89.29 Other chronic pain; L93.0 Discoid lupus erythematosus; M79.7 Fibromyalgia; Z79.899 Other long term (current) drug therapy
CPT/HCPCS: 36415; 71020; 80053; 80306; 81000; 82150; 82550; 82553; 83735; 83880; 84443; 84484; 85025; 85610; 85730; 93005; 93041

== ENCOUNTER → 2017-12-01 | Outpatient (CLI) | payer MEDICARE, MEDICAID ==
[~2017-12-01] MED LIST changes: +MELO15TA39; +METH4TAB PO; +MILN100T
--- NOTE | 2017-12-02 13:12 | Diagnostic Imaging Report ---
INDICATION: Routine screening. COMPARISON: 06/28/2014. TECHNIQUE: 2D and 3D bilateral screening mammography was performed with CAD. FINDINGS: Scattered fibroglandular densities are identified bilaterally. No dominant mass or malignant appearing microcalcifications are seen. The axillae are unremarkable. IMPRESSION: No mammographic features suspicious for malignancy are identified. ACR BI-RADS Category 1: Negative. Result letter will be mailed to the patient. Note: At least 10% of breast cancer is not imaged by mammography. Dictated by: Dictated on workstation # [id number]
== END ==
LOC: RAD 15:33
PROVIDERS: ATTEND Family Medicine
DX: Z12.31 Encounter for screening mammogram for malignant neoplasm of breast (principal)
CPT/HCPCS: 77067

== ENCOUNTER → 2017-12-08 | Outpatient (CLI) | payer MEDICARE, MEDICAID ==
--- NOTE | 2017-12-08 18:15 | Diagnostic Imaging Report ---
INDICATION: Neck pain. AP, oblique, lateral and odontoid views of the cervical spine are obtained with flexion and extension views performed in the lateral projection. FINDINGS: There is reversal of cervical lordosis. Vertebral body heights are maintained. There is narrowing of the C4-5 and C5-6 disc spaces with endplate spurring. This may result in mild bilateral neural foraminal stenosis at C4-5 and C5-6. No definite fracture is seen. IMPRESSION: Degenerative disc disease at C4-5 and C5-6 with probable mild bilateral neural foraminal stenosis. There is reversal of cervical lordosis, may be due to ligamentous laxity and clinical correlation is recommended. Dictated by: Dictated on workstation # [id number]
--- NOTE | 2017-12-08 18:17 | Diagnostic Imaging Report ---
INDICATION: Low back pain. 7 views of the lumbar spine were obtained. FINDINGS: The alignment is normal. Vertebral body heights are well-maintained. No spondylolysis or spondylolisthesis. There is no abnormal subluxation with flexion or extension. There are otherwise mild degenerative changes. IMPRESSION: Mild lumbar spondylosis, otherwise unremarkable lumbar spine series. Dictated by: Dictated on workstation # [id number]
== END ==
LOC: RAD 17:12
PROVIDERS: ATTEND Chiropractor
DX: M50.321 Other cervical disc degeneration at C4-C5 level (principal); M47.816 Spondylosis without myelopathy or radiculopathy, lumbar region; M19.90 Unspecified osteoarthritis, unspecified site; M06.9 Rheumatoid arthritis, unspecified
CPT/HCPCS: 72052; 72114

== ENCOUNTER 2018-12-27 23:36 | Emergency (ER) | payer MEDICARE, MEDICAID ==
[~2018-12-27] VITALS: Ht 160 cm; Wt 80.3 kg
[2018-12-27] MEDS ORDERED: LACTATED RINGERS 1,000 ML IV ONE (23:41)
--- OUTSIDE RECORDS SUMMARY | 2018-12-27 23:44 | XMS REPORT ---
Author Author NOAH ESCALANTE [facility] Address [address] [place] [address] Phone Unavailable Care Team Providers Care Financial Engineer Name Role Phone NOAH ESCALANTE Unavailable Unavailable PROBLEMS Unknown Problems ALLERGIES Substance Reaction Event Type Date Status doxycyclene Unknown Non Drug Allergy Jan, Active ENCOUNTERS Encounter Location Date Diagnosis [facility] [address] [phone] Feb, Dental examination Z01.20 [facility] [address] [phone] Feb, Dental examination Z01.20 [facility] [address] [id number] Jan, Dental examination Z01.20 [facility] [id number] [place] [phone] October, Dental examination Z01.20 [facility] [id number] [place] [phone] October, Dental abscess K04.7 and Dental caries K02.9 [facility] [id number] [place] [id number] Dec, Dental examination V72.2 [facility] [address] [phone] Nov, Dental examination V72.2 [facility] [id number] [place] [phone] October, Dental examination V72.2 IMMUNIZATIONS No Known Immunizations SOCIAL HISTORY Never Assessed REASON FOR VISIT Establish Care PLAN OF CARE Activity Details Follow Up bri Reason:lenny VITAL SIGNS Blood pressure systolic 142 mmHg 2018-01-28 Blood pressure diastolic 92 mmHg 2018-01-28 MEDICATIONS Medication Instructions Dosage Frequency Start Date End Date Duration Status Cholecalciferol 1000 UNIT Orally Once a day 1 capsule 24h Active Savella 100 MG Orally Twice a day 1 tablet 12h Active Diazepam 5 MG Orally Twice a day 1 tablet as needed 12h Active Omeprazole 40 MG Orally Once a day 1 capsule 24h Active Vitamin B 12 100 MCG Active Loratadine 10 MG Orally Once a day 1 tablet 24h Active Tramadol HCl 50 MG Orally every 6 hrs 1 tablet as needed 6h Active Imitrex 50 MG Orally Twice a day 1 tablet as needed 12h Active Zofran 4 MG Active Atorvastatin Calcium 10 MG Orally Once a day 1 tablet 24h Active Cyclobenzaprine HCl 10 MG Orally Three times a day 1 tablet as needed 8h Active Propranolol HCl 10 MG Orally Twice a day 1 tablet 12h Active ProAir HFA 108 (90 Base) MCG/ACT Inhalation every 6 hrs 2 puffs as needed 6h Active Biotin Ultra Strength Active Stool Softener 250 MG Orally Once a day 1 capsule as needed 24h Active Multivitamin Adults - Active Meclizine HCl 25 MG Orally Once a day 1 tablet as needed 24h Active Restasis 0.05 % Ophthalmic Twice a day 1 drop into affected eye 12h Active Calcium Citrate Chewy Bite 500-500 MG-UNIT Active RESULTS No Results PROCEDURES Procedure Date Ordered Result Body Site PROPHYLAXIS - ADULT Jan 28, 2018 TOPICAL FLUORIDE VARNISH Jan 28, 2018 INSTRUCTIONS MEDICATIONS ADMINISTERED No Known Medications MEDICAL (GENERAL) HISTORY Type Description Date Medical History lupus Medical History rheumatiod arthritis Medical History depression Medical History asthma Medical History fibromalgia Surgical History tonsillectomy Surgical History cholecystectomy Surgical History hysterectomy Surgical History gastric sleeve
--- OUTSIDE RECORDS SUMMARY | 2018-12-27 23:44 | XMS REPORT ---
Author Author KERICARLOS ALBERTO GARCIA [facility] Address Unknown Care Team Providers Care Construction Administrative Assistant Name Role Phone CARLOS ALBERTO CRAIN Unavailable PROBLEMS Unknown Problems ALLERGIES Substance Reaction Event Type Date Status doxycyclene Unknown Non Drug Allergy Feb, Active ENCOUNTERS Encounter Location Date Diagnosis [facility] [address] [phone] Feb, Dental examination Z01.20 [facility] [address] [id number] Feb, Dental examination Z01.20 [facility] [address] [id number] Jan, Dental examination Z01.20 [facility] [id number] [place] [phone] October, Dental examination Z01.20 [facility] [id number] [place] [phone] October, Dental abscess K04.7 and Dental caries K02.9 [facility] [id number] [place] [phone] Dec, Dental examination V72.2 [facility] [address] [phone] Nov, Dental examination V72.2 [facility] [address] [id number] October, Dental examination V72.2 IMMUNIZATIONS No Known Immunizations SOCIAL HISTORY Never Assessed REASON FOR VISIT Restorative/twe PLAN OF CARE Activity Details Follow Up prn Reason:45 min filling #12 VITAL SIGNS Blood pressure systolic 116 mmHg 2018-03-13 Blood pressure diastolic 78 mmHg 2018-03-13 MEDICATIONS Medication Instructions Dosage Frequency Start Date End Date Duration Status Stool Softener 250 MG Orally Once a day 1 capsule as needed 24h Active Tramadol HCl 50 MG Orally every 6 hrs 1 tablet as needed 6h Active Propranolol HCl 10 MG Orally Twice a day 1 tablet 12h Active Vitamin B 12 100 MCG Active Multivitamin Adults - Active Atorvastatin Calcium 10 MG Orally Once a day 1 tablet 24h Active Restasis 0.05 % Ophthalmic Twice a day 1 drop into affected eye 12h Active Zofran 4 MG Active Imitrex 50 MG Orally Twice a day 1 tablet as needed 12h Active Cyclobenzaprine HCl 10 MG Orally Three times a day 1 tablet as needed 8h Active Loratadine 10 MG Orally Once a day 1 tablet 24h Active Diazepam 5 MG Orally Twice a day 1 tablet as needed 12h Active Savella 100 MG Orally Twice a day 1 tablet 12h Active Biotin Ultra Strength Active Cholecalciferol 1000 UNIT Orally Once a day 1 capsule 24h Active Omeprazole 40 MG Orally Once a day 1 capsule 24h Active Meclizine HCl 25 MG Orally Once a day 1 tablet as needed 24h Active ProAir HFA 108 (90 Base) MCG/ACT Inhalation every 6 hrs 2 puffs as needed 6h Active Calcium Citrate Chewy Bite 500-500 MG-UNIT Active RESULTS No Results PROCEDURES Procedure Date Ordered Result Body Site RESIN COMPOS - 3 SURFACES ANTERIOR Mar 13, 2018 RESIN COMPOS - 3 SURFACES ANTERIOR Mar 13, 2018 RESIN COMPOS - 2 SURFACES POSTERIOR Mar 13, 2018 INSTRUCTIONS MEDICATIONS ADMINISTERED No Known Medications MEDICAL (GENERAL) HISTORY Type Description Date Medical History lupus Medical History rheumatiod arthritis Medical History depression Medical History asthma Medical History fibromalgia Surgical History tonsillectomy Surgical History cholecystectomy Surgical History hysterectomy Surgical History gastric sleeve
--- OUTSIDE RECORDS SUMMARY | 2018-12-27 23:44 | XMS REPORT ---
Author Author KERICARLOS ALBERTO GARCIA [facility] Address Unknown Care Team Providers Care Supervisor Machine Workers Name Role Phone CARLOS ALBERTO CRAIN Unavailable PROBLEMS Unknown Problems ALLERGIES Substance Reaction Event Type Date Status doxycyclene Unknown Non Drug Allergy Feb, Active ENCOUNTERS Encounter Location Date Diagnosis [facility] [address] [id number] Feb, Dental examination Z01.20 [facility] [address] [id number] Feb, Dental examination Z01.20 [facility] [address] [id number] Jan, Dental examination Z01.20 [facility] [id number] [place] [address] [id number] October, Dental examination Z01.20 [facility] [id number] [place] [phone] October, Dental abscess K04.7 and Dental caries K02.9 [facility] [id number] [place] [address] [id number] Dec, Dental examination V72.2 [facility] [address] [id number] Nov, Dental examination V72.2 [facility] [address] [id number] October, Dental examination V72.2 IMMUNIZATIONS No Known Immunizations SOCIAL HISTORY Never Assessed REASON FOR VISIT 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-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 PLAN OF CARE Activity Details Follow Up prn Reason:#9-D jainism VITAL SIGNS Blood pressure systolic 121 mmHg 2018-02-24 Blood pressure diastolic 70 mmHg 2018-02-24 MEDICATIONS Medication Instructions Dosage Frequency Start Date End Date Duration Status Stool Softener 250 MG Orally Once a day 1 capsule as needed 24h Active ProAir HFA 108 (90 Base) MCG/ACT Inhalation every 6 hrs 2 puffs as needed 6h Active Cyclobenzaprine HCl 10 MG Orally Three times a day 1 tablet as needed 8h Active Vitamin B 12 100 MCG Active Cholecalciferol 1000 UNIT Orally Once a day 1 capsule 24h Active Diazepam 5 MG Orally Twice a day 1 tablet as needed 12h Active Restasis 0.05 % Ophthalmic Twice a day 1 drop into affected eye 12h Active Biotin Ultra Strength Active Imitrex 50 MG Orally Twice a day 1 tablet as needed 12h Active Loratadine 10 MG Orally Once a day 1 tablet 24h Active Atorvastatin Calcium 10 MG Orally Once a day 1 tablet 24h Active Propranolol HCl 10 MG Orally Twice a day 1 tablet 12h Active Savella 100 MG Orally Twice a day 1 tablet 12h Active Meclizine HCl 25 MG Orally Once a day 1 tablet as needed 24h Active Multivitamin Adults - Active Omeprazole 40 MG Orally Once a day 1 capsule 24h Active Calcium Citrate Chewy Bite 500-500 MG-UNIT Active Tramadol HCl 50 MG Orally every 6 hrs 1 tablet as needed 6h Active Zofran 4 MG Active RESULTS No Results PROCEDURES Procedure Date Ordered Result Body Site COMP ORAL EVALUATION - NEW/EST PT Feb 24, 2018 INTRAORL-PERIAPICAL 1 FILM [id number] Feb 24, 2018 BITEWINGS - FOUR FILMS Feb 24, 2018 INTRAORL-PERIAPICAL EA ADD FILM Feb 24, 2018 PANORAMIC FILM SEE ALSO CODE [id number] Feb 24, 2018 INSTRUCTIONS MEDICATIONS ADMINISTERED No Known Medications MEDICAL (GENERAL) HISTORY Type Description Date Medical History lupus Medical History rheumatiod arthritis Medical History depression Medical History asthma Medical History fibromalgia Surgical History tonsillectomy Surgical History cholecystectomy Surgical History hysterectomy Surgical History gastric sleeve
--- OUTSIDE RECORDS SUMMARY | 2018-12-27 23:44 | XMS REPORT ---
Author Author MARGOTH BUSTAMANTE Organization [facility] Address [address] [place] [address] Care Team Providers Care Store Warehouse Associate Name Role Phone MARGOTH BUSTAMANTE Unavailable PROBLEMS Unknown Problems ALLERGIES Substance Reaction Event Type Date Status doxycyclene Unknown Non Drug Allergy October, Active ENCOUNTERS Encounter Location Date Diagnosis [facility] [id number] [place] [id number] Feb, [facility] [id number] [place] [address] [id number] Jan, Dental examination Z01.20 [facility] [id number] [place] [address] [phone] October, Dental examination Z01.20 [facility] [id number] [place] [phone] October, Dental abscess K04.7 and Dental caries K02.9 [facility] [id number] [place] [address] [id number] Dec, Dental examination V72.2 [facility] [id number] [place] [id number] Nov, Dental examination V72.2 [facility] [id number] [place] [address] [id number] October, Dental examination V72.2 IMMUNIZATIONS No Known Immunizations SOCIAL HISTORY Never Assessed REASON FOR VISIT Abscess tooth Pt has had an abscess tooth for about 3 days BRI Gardner PLAN OF CARE Activity Details Follow Up prn Reason: VITAL SIGNS Weight 168.7 lbs 2017-10-31 Temperature 98.1 degrees Fahrenheit 2017-10-31 Heart Rate 88 bpm 2017-10-31 Respiratory Rate 20 2017-10-31 Blood pressure systolic 118 mmHg 2017-10-31 Blood pressure diastolic 66 mmHg 2017-10-31 MEDICATIONS Medication Instructions Dosage Frequency Start Date End Date Duration Status Vitamin B 12 100 MCG Active Omeprazole 40 MG Orally Once a day 1 capsule 24h Active Diazepam 5 MG Orally Twice a day 1 tablet as needed 12h Active Clindamycin HCl 300 MG Orally every 8 hrs 1 capsule 8h October, October, 10 days Active Multivitamin Adults - Active Propranolol HCl 10 MG Orally Twice a day 1 tablet 12h Active Tramadol HCl 50 MG Orally every 6 hrs 1 tablet as needed 6h Active Restasis 0.05 % Ophthalmic Twice a day 1 drop into affected eye 12h Active ProAir HFA 108 (90 Base) MCG/ACT Inhalation every 6 hrs 2 puffs as needed 6h Active Cyclobenzaprine HCl 10 MG Orally Three times a day 1 tablet as needed 8h Active Meclizine HCl 25 MG Orally Once a day 1 tablet as needed 24h Active Zofran 4 MG Active Cholecalciferol 1000 UNIT Orally Once a day 1 capsule 24h Active Imitrex 50 MG Orally Twice a day 1 tablet as needed 12h Active Loratadine 10 MG Orally Once a day 1 tablet 24h Active Atorvastatin Calcium 10 MG Orally Once a day 1 tablet 24h Active Calcium Citrate Chewy Bite 500-500 MG-UNIT Active Savella 100 MG Orally Twice a day 1 tablet 12h Active Stool Softener 250 MG Orally Once a day 1 capsule as needed 24h Active Biotin Ultra Strength Active RESULTS No Results PROCEDURES No Known procedures INSTRUCTIONS MEDICATIONS ADMINISTERED No Known Medications MEDICAL (GENERAL) HISTORY Type Description Date Medical History lupus Medical History rheumatiod arthritis Medical History depression Medical History asthma Medical History fibromalgia Surgical History tonsillectomy Surgical History cholecystectomy Surgical History hysterectomy Surgical History gastric sleeve
--- OUTSIDE RECORDS SUMMARY | 2018-12-27 23:44 | XMS REPORT | Clinical Summary ---
Author Author [facility] Organization [facility] Address Unknown Phone Unavailable Care Team Providers Care Charging Car Operator Name Role Phone PCP Unavailable Allergies Not on File Current Medications Not on file Active Problems Not on file Social History Tobacco Use Types Packs/Day Years Used Date Never Assessed Sex Assigned at Date Recorded Not on file Last Filed Vital Signs Not on file Plan of Treatment Not on file Results Not on filefrom Last 3 Months
--- OUTSIDE RECORDS SUMMARY | 2018-12-27 23:44 | XMS REPORT ---
Author Author Erick Auguste [facility] Address [address] [place], [place] [id number] Care Team Providers Care Packer Sausage And Wiener Name Role Phone Erick Auguste PCP Allergies and Adverse Reactions Name Reaction Notes doxycycline monohydrate Plan of Treatment Planned Activity Comments Planned Date Planned Time Plan/Goal fibro, RA 02/05/2018 12:00 AM Medications Active Name Start Date Estimated Completion Date SIG Comments Ventolin HFA 90 mcg/actuation inhalation HFA aerosol inhaler 01/12/2018 cyclobenzaprine 10 mg oral tablet 01/06/2018 atorvastatin 10 mg oral tablet 01/06/2018 diazepam 5 mg oral tablet 01/06/2018 omeprazole 40 mg oral capsule,delayed release(DR/EC) 01/05/2018 tramadol 50 mg oral tablet 12/31/2017 Savella 100 mg oral tablet 12/09/2017 sumatriptan succinate 50 mg oral tablet 12/08/2017 ondansetron 4 mg oral tablet,disintegrating 10/08/2017 propranolol 10 mg oral tablet 07/21/2017 Restasis 0.05 % ophthalmic (eye) dropperette instill 1-1 drop by ophthalmic route every 12 hours ProAir HFA 90 mcg/actuation inhalation HFA aerosol inhaler inhale 1 - 2 puffs (90 - 180 mcg) by inhalation route every 4-6 hours as needed Stool Softener 250 mg oral capsule take 1 capsule by oral route 2 times a day as needed meclizine 25 mg oral tablet take 1 tablet (25 mg) by oral route 4 times per day as needed loratadine 10 mg oral tablet take 1 tablet (10 mg) by oral route once daily Gas Relief 125 mg oral capsule take 3 capsules by oral route daily as needed acetaminophen 500 mg oral tablet take 2 tablets by oral route once a day (at bedtime) Arthritis Pain Reliever 650 mg oral tablet extended release take 2 tablets (1,300 mg) by oral route every 8 hours swallowing whole with water. Do not break, crush, dissolve and/or chew. Centrum Silver 400-250 mcg oral tablet,chewable chew 1 tablet by oral route daily Vitamin B-12 5,000 mcg sublingual tablet, sublingual place 1 tablet under tongue by translingual route daily Vitamin D3 1,000 unit oral capsule take 1 capsule by oral route daily biotin 300 mcg oral tablet take 1 tablet by oral route daily Problem List Description Status Onset Rheumatoid arthritis Active Asthma Active Fibromyalgia Active Anxiety Active Depression Active Vital Signs Date Time BP-Sys(mm[Hg] BP-Li(mm[Hg]) HR(bpm) RR(rpm) Temp WT HT HC BMI BSA BMI Percentile O2 Sat(%) 01/15/2018 1:36:00 PM 110 mmHg 80 mmHg 85 bpm 18 rpm 98.6 F 166.187 lbs 63 in 29.4385 kg/m 1.8305 m 100 % Social History Name Description Comments Tobacco Former smoker former Alcohol very little light exercise History of Procedures Date Ordered Description Order Status 01/15/2018 12:00 AM COMPLETE CBC W/AUTO DIFF WBC Returned 01/15/2018 12:00 AM COMPREHEN METABOLIC PANEL Returned 01/15/2018 12:00 AM VITAMIN D 25 HYDROXY Returned 01/15/2018 12:00 AM VITAMIN B-12 Returned 01/15/2018 12:00 AM ASSAY OF FOLIC ACID SERUM Returned 01/15/2018 12:00 AM LIPID PANEL Returned 01/15/2018 12:00 AM GLYCOSYLATED HEMOGLOBIN TEST Returned 01/15/2018 12:00 AM IMMUNOASSAY TUMOR CA 15-3 Returned Results Summary Not available. History Of Immunizations Not available. History of Past Illness Name Date of Onset Comments Fibromyalgia Rheumatoid arthritis Depression Anxiety Asthma Fibromyalgia Jan 15 2018 1:40PM History of gastric bypass Jan 15 2018 1:40PM Screening for ischemic heart disease (IHD) Jan 15 2018 1:40PM Maternal family history of cancer Jan 15 2018 1:40PM Rheumatoid arthritis Jan 15 2018 1:40PM Other specified anxiety disorders Jan 15 2018 1:40PM Depression Jan 15 2018 1:40PM Payers Insurance Name Company Name Plan Name Plan Number Policy Number Policy Group Number Start Date Medicare RHC Medicare [facility] [id number] N/A [employer] [facility] [place] [employer] [facility] [place] [id number] N/A Medicare Part A Medicare - Lab/Xray [id number] N/A History of Encounters Visit Date Visit Type Provider 01/15/2018 Office visit Erick Auguste APRN
--- OUTSIDE RECORDS SUMMARY | 2018-12-27 23:44 | XMS REPORT | Clinical Summary ---
Author Author [facility] Organization [facility] Address Unknown Phone Unavailable Care Team Providers Care Jointer Submarine Cable Name Role Phone Chiqui Cooper MD PCP Source Comments Some departments are not documenting in the electronic medical record. If you d o not see the information that you expected, contact Release of Information in [facility] Information Management department at [phone] for further assistan ce in locating additional records.[facility] Allergies Not on File Medications Not on file Active Problems Not on file Social History Date Tobacco Use Types Packs/Day Years Used Never Assessed Sex Assigned at Date Recorded Not on file Industry Job Start Date Occupation Not on file Not on file Not on file Travel End Travel History Travel Start No recent travel history available. Last Filed Vital Signs Not on file Plan of Treatment Health Maintenance Due Date Last Done Comments PHYSICAL (COMPREHENSIVE) 12/28/1979 EXAM HIV SCREENING 12/28/1987 DTAP/TDAP VACCINES ( - 1990 Tdap) CERVICAL CANCER SCREENING 2002 BREAST CANCER SCREENING 2012 INFLUENZA VACCINE 03/23/2019 Results Not on filefrom Last 3 Months
--- OUTSIDE RECORDS SUMMARY | 2018-12-27 23:44 | XMS REPORT ---
Author Author KERICARLOS ALBERTO GARCIA [facility] Address Unknown Care Team Providers Care Manager Financial Services Name Role Phone CARLOS ALBERTO CRAIN Unavailable PROBLEMS Unknown Problems ALLERGIES Substance Reaction Event Type Date Status doxycyclene Unknown Non Drug Allergy October, Active ENCOUNTERS Encounter Location Date Diagnosis [facility] [id number] [place] [id number] Feb, [facility] [id number] [place] [address] [id number] Jan, Dental examination Z01.20 [facility] [id number] [place] [address] [id number] October, Dental examination Z01.20 [facility] [id number] [place] [phone] October, Dental abscess K04.7 and Dental caries K02.9 [facility] [id number] [place] [address] [phone] Dec, Dental examination V72.2 [facility] [id number] [place] [address] [id number] Nov, Dental examination V72.2 [facility] [id number] [place] [address] [phone] October, Dental examination V72.2 IMMUNIZATIONS No Known Immunizations SOCIAL HISTORY Never Assessed REASON FOR VISIT TAT[place] PLAN OF CARE Activity Details Follow Up prn Reason:lenny/hygiene VITAL SIGNS Blood pressure systolic 116 mmHg 2017-11-04 Blood pressure diastolic 72 mmHg 2017-11-04 MEDICATIONS Medication Instructions Dosage Frequency Start Date End Date Duration Status Stool Softener 250 MG Orally Once a day 1 capsule as needed 24h Active Restasis 0.05 % Ophthalmic Twice a day 1 drop into affected eye 12h Active Loratadine 10 MG Orally Once a day 1 tablet 24h Active Vitamin B 12 100 MCG Active Cholecalciferol 1000 UNIT Orally Once a day 1 capsule 24h Active Cyclobenzaprine HCl 10 MG Orally Three times a day 1 tablet as needed 8h Active ProAir HFA 108 (90 Base) MCG/ACT Inhalation every 6 hrs 2 puffs as needed 6h Active Imitrex 50 MG Orally Twice a day 1 tablet as needed 12h Active Biotin Ultra Strength Active Propranolol HCl 10 MG Orally Twice a day 1 tablet 12h Active Atorvastatin Calcium 10 MG Orally Once a day 1 tablet 24h Active Diazepam 5 MG Orally Twice a day 1 tablet as needed 12h Active Savella 100 MG Orally Twice a day 1 tablet 12h Active Zofran 4 MG Active Multivitamin Adults - Active Omeprazole 40 MG Orally Once a day 1 capsule 24h Active Calcium Citrate Chewy Bite 500-500 MG-UNIT Active Clindamycin HCl 300 MG Orally every 8 hrs 1 capsule 8h October, October, 10 days Active Tramadol HCl 50 MG Orally every 6 hrs 1 tablet as needed 6h Active Meclizine HCl 25 MG Orally Once a day 1 tablet as needed 24h Active RESULTS No Results PROCEDURES Procedure Date Ordered Result Body Site LTD ORAL EVALUATION - PROBLEM FOCUS November 04, 2017 INTRAORL-PERIAPICAL 1 FILM [id number] November 04, 2017 INSTRUCTIONS MEDICATIONS ADMINISTERED No Known Medications MEDICAL (GENERAL) HISTORY Type Description Date Medical History lupus Medical History rheumatiod arthritis Medical History depression Medical History asthma Medical History fibromalgia Surgical History tonsillectomy Surgical History cholecystectomy Surgical History hysterectomy Surgical History gastric sleeve
[2018-12-27] MEDS ORDERED: ONDANSETRON 4 MG/2 ML (SDV) Z0FRAN IVP ONE (23:45)
--- OUTSIDE RECORDS SUMMARY | 2018-12-27 23:47 | XMS REPORT | Continuity of Care Document ---
Author Organization Unknown Address Unknown Allergies Active Description Code Type Severity Reaction Onset Reported/Identified Relationship to Patient Clinical Status Yes doxycycline [id number] Drug Allergy Unknown N/A 05/29/2008 Medications There is no data. 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 SALES MANAGER Ot 250.00 DIAB ROXANNA WO COMPL, TYPE II OR UNSPEC TY 02/20/2014 GLYNN MONGE [employer]IVE INTERNET SALES MANAGER Ot 780.96 GENERALIZED PAIN 02/20/2014 GLYNN MONGE AUT[employer]OTIVE INTERNET SALES MANAGER Ot V58.69 OTH MED,LT,CURRENT USE 07/23/2014 GELANN PEACOCK DO Ot V76.12 07/27/2014 ANN BOWERS DO Ot V76.12 08/18/2014 Ot 346.90 MIGRAINE UNSPECIFIED W/O INTRACT MGRN W/ 08/18/2014 Ot 784.0 HEADACHE 09/10/2014 ELSY WEBB DO Ot 473.9 CHRONIC SINUSITIS NOS 09/10/2014 ELSY WEBB DO Ot 478.19 OTHER DISEASE OF NASAL CAVITY AND SINUSE 09/10/2014 ELSY WEBB DO Ot 780.4 DIZZINESS AND GIDDINESS 12/19/2014 ANN BOWERS DO Ot V76.12 01/17/2015 GELLENDER ANN STANLEY Ot 250.00 01/17/2015 GELLENDER DOANN Ot 716.90 01/17/2015 GELLENDER DOANN Ot 729.1 01/20/2015 GELLENDER DOANN Ot 250.00 01/20/2015 GELLENDER ANN STANLEY Ot 716.90 01/20/2015 GELLENDER DOANN Ot 729.1 03/01/2015 ALICE SYKES Ot 465.9 ACUTE URI NOS 03/01/2015 ALICE SYKES Ot 599.0 URIN TRACT INFECTION NOS 03/01/2015 ALICE SYKES Ot 786.2 COUGH 05/06/2016 COY DO, TRACY Hollins Ot K91.2 POSTSURGICAL MALABSORPTION, NOT ELSEWHER 05/07/2016 COY DO, TRACY B Ot K91.2 POSTSURGICAL MALABSORPTION, NOT ELSEWHER 05/07/2016 COY DO, TRACY B Ot Z98.84 BARIATRIC SURGERY STATUS 05/14/2016 COY DO, TRACY B Ot K91.2 POSTSURGICAL MALABSORPTION, NOT ELSEWHER 05/14/2016 COY DO, TRACY B Ot Z98.84 BARIATRIC SURGERY STATUS 06/21/2016 COY DO, TRACY B Ot K91.2 POSTSURGICAL MALABSORPTION, NOT ELSEWHER 06/21/2016 COY DO, TRACY B Ot Z98.84 BARIATRIC SURGERY STATUS 07/02/2016 COY DO, TRACY B Ot K91.2 POSTSURGICAL MALABSORPTION, NOT ELSEWHER 07/02/2016 COY DO, TRACY B Ot Z98.84 BARIATRIC SURGERY STATUS 08/11/2016 ABBY MENENDEZ MD Ot E66.9 OBESITY, UNSPECIFIED 08/11/2016 BABY MENENDEZ MD Ot K59.00 CONSTIPATION, UNSPECIFIED 08/11/2016 ABBY MENENDEZ MD Ot K59.03 DRUG INDUCED CONSTIPATION 08/11/2016 ABBY MENENDEZ MD Ot M79.7 FIBROMYALGIA 08/11/2016 ABBY MENENDEZ MD Ot N39.0 URINARY TRACT INFECTION, SITE NOT SPECIF 08/11/2016 ABBY MENENDEZ MD Ot Z79.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 BODYWORK THERAPIST (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) USE OF OPIATE ANALGE 08/11/2016 ABBY MENENDEZ MD Ot Z79.899 OTHER BODYWORK THERAPIST (CURRENT) DRUG THERAPY 08/11/2016 ABBY MENENDEZ MD Ot Z98.84 BARIATRIC SURGERY STATUS 08/13/2016 ABBY MENENDEZ MD Ot E66.9 OBESITY, UNSPECIFIED 08/13/2016 ABBY MENENDEZ MD Ot K59.00 CONSTIPATION, UNSPECIFIED 08/13/2016 ABBY MENENDEZ MD Ot K59.03 DRUG INDUCED CONSTIPATION 08/13/2016 ABBY MENENDEZ MD Ot M79.7 FIBROMYALGIA 08/13/2016 ABBY MENENDEZ MD Ot N39.0 URINARY TRACT INFECTION, SITE NOT SPECIF 08/13/2016 ABBY MENENDEZ MD Ot Z79.891 BODYWORK THERAPIST (CURRENT) USE OF OPIATE ANALGE 08/13/2016 ABBY MENENDEZ MD Ot Z79.899 OTHER SENIOR CARE (CURRENT) DRUG THERAPY 08/13/2016 ABBY MENENDEZ MD Ot Z98.84 BARIATRIC SURGERY STATUS 11/14/2016 JON ELSY STANLEY Ken Ot G89.29 OTHER CHRONIC PAIN 11/14/2016 [facility], ELSY Ken Ot L93.0 DISCOID LUPUS ERYTHEMATOSUS 11/14/2016 [facility] ELSY Ken Ot M79.7 FIBROMYALGIA 11/14/2016 JON ELSY Ken Ot R51 HEADACHE 11/14/2016 JON , ELSY K Ot R52 PAIN, UNSPECIFIED 11/14/2016 [place] ELSY K Ot Z79.899 OTHER SENIOR CARE (CURRENT) DRUG THERAPY 11/15/2016 JON ELSY Ken Ot G89.29 OTHER CHRONIC PAIN 11/15/2016 [facility], ELSY K Ot L93.0 DISCOID LUPUS ERYTHEMATOSUS 11/15/2016 [place] ELSY Ken Ot M79.7 FIBROMYALGIA 11/15/2016 [place] ELSY K Ot R51 HEADACHE 11/15/2016 [place] , ELSY K Ot R52 PAIN, UNSPECIFIED 11/15/2016 [place] ELSY K Ot Z79.899 OTHER SENIOR CARE (CURRENT) DRUG THERAPY 11/28/2017 ANN BOWERS DO Ot V76.12 OTH SCREEN MAMMO-MALIGN NEOPLASM OF TRACE 11/28/2017 ANN BOWERS DO Ot 250.00 DIAB ROXANNA WO COMPL, TYPE II OR UNSPEC TY 11/28/2017 ANN BOWERS DO Ot 716.90 ARTHROPATHY NOS-UNSPEC 11/28/2017 ANN BOWERS DO Ot 729.1 MYALGIA AND MYOSITIS NOS 11/28/2017 TRACY NEAL DO Ot K91.2 POSTSURGICAL MALABSORPTION, NOT ELSEWHER 11/28/2017 TRACY NEAL DO Ot Z98.84 BARIATRIC SURGERY STATUS 11/28/2017 ANN BOWERS DO Ot Z12.31 ENCNTR SCREEN MAMMOGRAM FOR MALIGNANT NE 12/02/2017 ANN BOWERS DO Ot Z12.31 ENCNTR SCREEN MAMMOGRAM FOR MALIGNANT NE 12/02/2017 GELLENDER DO, ANN Schwab Ot Z12.31 ENCNTR SCREEN MAMMOGRAM FOR MALIGNANT NE 12/10/2017 SAMARIA LALA DC Ot M06.9 RHEUMATOID ARTHRITIS, UNSPECIFIED 12/10/2017 SAMARIA LALA DC Ot M19.90 UNSPECIFIED OSTEOARTHRITIS, UNSPECIFIED 12/10/2017 SAMARIA LALA DC Ot M47.816 SPONDYLOSIS W/O MYELOPATHY OR RADICULOPA 12/10/2017 SAMARIA LALA DC Ot M50.321 OTHER CERVICAL DISC DEGENERATION AT C4-C 12/25/2017 GELLENDER DO, ANN Schwab Ot Z12.31 ENCNTR SCREEN MAMMOGRAM FOR MALIGNANT NE 12/26/2017 GELLENDER DO, ANN Schwab Ot Z12.31 ENCNTR SCREEN MAMMOGRAM FOR MALIGNANT NE 12/30/2017 SAMARIA LALA DC, Ot M06.9 RHEUMATOID ARTHRITIS, UNSPECIFIED 12/30/2017 SAMARIA LALA DC, Ot M19.90 UNSPECIFIED OSTEOARTHRITIS, UNSPECIFIED 12/30/2017 SAMARIA LALA DC, Ot M47.816 SPONDYLOSIS W/O MYELOPATHY OR RADICULOPA 12/30/2017 SAMARIA LALA DC Ot M50.321 OTHER CERVICAL DISC DEGENERATION AT C4-C 01/07/2018 SAMARIA LALA DC, Ot M06.9 RHEUMATOID ARTHRITIS, UNSPECIFIED 01/07/2018 SAMARIA LALA DC, Ot M19.90 UNSPECIFIED OSTEOARTHRITIS, UNSPECIFIED 01/07/2018 SAMARIA LALA DC, Ot M47.816 SPONDYLOSIS W/O MYELOPATHY OR RADICULOPA 01/07/2018 SAMARIA LALA DC Ot M50.321 OTHER CERVICAL DISC DEGENERATION AT C4-C Procedures There is no data. Results Test Result Range Complete urinalysis with reflex to culture - 08/11/16 17:36 Urine color determination NERY NRG Urine clarity determination SLIGHTLY CLOUDY NRG Urine pH measurement by test strip 5 5-9 Specific gravity of urine by test strip 1.025 1.016-1.022 Urine protein assay by test strip, semi-quantitative 2+ NEGATIVE Urine glucose detection by automated test strip NEGATIVE NEGATIVE Erythrocytes detection in urine sediment by light microscopy NEGATIVE NEGATIVE Urine ketones detection by automated test strip 2+ NEGATIVE Urine nitrite detection by test strip POSITIVE NEGATIVE Urine total bilirubin detection by test strip 1+ NEGATIVE Urine urobilinogen measurement by automated test strip (mass/volume) 1 mg/dL NORMAL Urine leukocyte esterase detection by dipstick 3+ NEGATIVE Automated urine sediment erythrocyte count by microscopy (number/high power field) [HPF] NRG Automated urine sediment leukocyte count by microscopy (number/high power field) [HPF] NRG Bacteria detection in urine sediment by light microscopy LARGE NRG Squamous epithelial cells detection in urine sediment by light microscopy 25-50 NRG Crystals detection in urine sediment by light microscopy PRESENT NRG Casts detection in urine sediment by light microscopy NONE NRG Mucus detection in urine sediment by light microscopy NEGATIVE NRG Complete urinalysis with reflex to culture YES NRG Calcium oxalate crystals detection in urine sediment by light microscopy FEW NRG Bacterial urine culture - 08/11/16 17:36 Bacterial urine culture [id number] NRG COLONY COUNT >100,000/ML NRG FTX;REPORTABLE SENSITIVITY REPORTED AT 1618, 2--17 NR Bacterial susceptibility panel - 08/11/16 17:36 Gentamicin susceptibility test by minimum inhibitory concentration <= NRG Trimethoprim/sulfamethoxazole susceptibility test by minimum inhibitoryconcentration <= NRG Ampicillin susceptibility test by minimum inhibitory concentration <= NRG Tobramycin susceptibility test by minimum inhibitory concentration <= NRG Cefazolin susceptibility test by minimum inhibitory concentration <= NRG Ceftriaxone susceptibility test by minimum inhibitory concentration <= NRG Ampicillin/sulbactam susceptibility test by minimum inhibitory concentration <= NRG Piperacillin/tazobactam susceptibility test by minimum inhibitory concentration <= NRG Ciprofloxacin susceptibility test by minimum inhibitory concentration <= NRG Meropenem susceptibility test by minimum inhibitory concentration <= NRG Nitrofurantoin susceptibility test by minimum inhibitory concentration <= NRG Aztreonam susceptibility test by minimum inhibitory concentration <= NRG Extended spectrum beta lactamase (ESBL) producing bacteria susceptibility test by minimum inhibitory concentration - NR Complete blood count (CBC) with automated white blood cell (WBC) differential - 11/14/16 17:50 Blood leukocytes automated count (number/volume) 7.3 10*3/uL 4.3-11.0 Blood erythrocytes automated count (number/volume) 4.23 10*6/uL 4.35-5.85 Venous blood hemoglobin measurement (mass/volume) 12.9 g/dL 11.5-16.0 Blood hematocrit (volume fraction) 38 % 35-52 Automated erythrocyte mean corpuscular volume 90 [foz_us] 80-99 Automated erythrocyte mean corpuscular hemoglobin (mass per erythrocyte) 31 pg 25-34 Automated erythrocyte mean corpuscular hemoglobin concentration measurement (mass/volume) 34 g/dL 32-36 Automated erythrocyte distribution width ratio 12.4 % 10.0- 14.5 Automated blood platelet count (count/volume) 225 10*3/uL 130-400 Automated blood platelet mean volume measurement 9.4 [foz_us] 7.4-10.4 Automated blood neutrophils/100 leukocytes 46 % 42-75 Automated blood lymphocytes/100 leukocytes 43 % 12-44 Blood monocytes/100 leukocytes 7 % 0-12 Automated blood eosinophils/100 leukocytes 3 % 0-10 Automated blood basophils/100 leukocytes 0 % 0-10 Blood neutrophils automated count (number/volume) 3.4 10*3 1.8-7.8 Blood lymphocytes automated count (number/volume) 3.2 10*3 1.0-4.0 Blood monocytes automated count (number/volume) 0.5 10*3 0.0- 1.0 Automated eosinophil count 0.2 10*3/uL 0.0-0.3 Automated blood basophil count (count/volume) 0.0 10*3/uL 0.0-0.1 PT panel in platelet poor plasma by coagulation assay - 11/14/16 17:50 Prothrombin time (PT) in platelet poor plasma by coagulation assay 13.4 s 12.2-14.7 INR in platelet poor plasma or blood by coagulation assay 1.1 0.8-1.4 Activated partial thromboplastin time (aPTT) in platelet poor plasma bycoagulation assay - 11/14/16 17:50 Activated partial thromboplastin time (aPTT) in platelet poor plasma bycoagulation assay 27 s 24-35 Comprehensive metabolic panel - 11/14/16 17:50 Serum or plasma sodium measurement (moles/volume) 144 mmol/L 135-145 Serum or plasma potassium measurement (moles/volume) 3.8 mmol/L 3.6-5.0 Serum or plasma chloride measurement (moles/volume) 108 mmol/L 98-107 Carbon dioxide 29 mmol/L 21-32 Serum or plasma anion gap determination (moles/volume) 7 mmol/L 5-14 Serum or plasma urea nitrogen measurement (mass/volume) 17 mg/dL 7-18 Serum or plasma creatinine measurement (mass/volume) 0.85 mg/dL 0.60-1.30 Serum or plasma urea nitrogen/creatinine mass ratio 20 NRG Serum or plasma creatinine measurement with calculation of estimated glomerular filtration rate > NRG Serum or plasma glucose measurement (mass/volume) 82 mg/dL 70-105 Serum or plasma calcium measurement (mass/volume) 9.1 mg/dL 8.5-10.1 Serum or plasma total bilirubin measurement (mass/volume) 0.4 mg/dL 0.1-1.0 Serum or plasma alkaline phosphatase measurement (enzymatic activity/volume) 67 U/L 40-136 Serum or plasma aspartate aminotransferase measurement (enzymatic activity/volume) 23 U/L 5-34 Serum or plasma alanine aminotransferase measurement (enzymatic activity/volume) 19 U/L 0-55 Serum or plasma protein measurement (mass/volume) 7.2 g/dL 6.4-8.2 Serum or plasma albumin measurement (mass/volume) 4.1 g/dL 3.2-4.5 Magnesium - 11/14/16 17:50 Magnesium 2.5 mg/dL 1.8-2.4 Serum or plasma creatine kinase measurement (enzymatic activity/volume) - 11/14/16 17:50 Serum or plasma creatine kinase measurement (enzymatic activity/volume) 158 U/L 29-168 Serum or plasma creatine kinase MB measurement (enzymatic activity/volume) - 11/14/16 17:50 Serum or plasma creatine kinase MB measurement (enzymatic activity/volume) 1.6 ng/mL <6.6 Serum or plasma lithium measurement (moles/volume) - 11/14/16 17:50 BNP level 19.7 pg/mL <100.0 Serum or plasma troponin i.cardiac measurement (mass/volume) - 11/14/16 17:50 Serum or plasma troponin i.cardiac measurement (mass/volume) < ng/mL <0.30 Serum or plasma amylase measurement (enzymatic activity/volume) - 11/14/16 17:50 Serum or plasma amylase measurement (enzymatic activity/volume) 47 U/L 25-125 Serum or plasma thyrotropin measurement by detection limit <=0.05 miu/l (units/volume) - 11/14/16 17:50 Serum or plasma thyrotropin measurement by detection limit <=0.05 miu/l (units/volume) 1.45 u[iU]/mL 0.35-4.94 Complete urinalysis with reflex to culture - 11/14/16 18:24 Urine color determination YELLOW NRG Urine clarity determination CLEAR NRG Urine pH measurement by test strip 6 5-9 Specific gravity of urine by test strip 1.010 1.016-1.022 Urine protein assay by test strip, semi-quantitative NEGATIVE NEGATIVE Urine glucose detection by automated test strip NEGATIVE NEGATIVE Erythrocytes detection in urine sediment by light microscopy NEGATIVE NEGATIVE Urine ketones detection by automated test strip NEGATIVE NEGATIVE Urine nitrite detection by test strip NEGATIVE NEGATIVE Urine total bilirubin detection by test strip NEGATIVE NEGATIVE Urine urobilinogen measurement by automated test strip (mass/volume) NORMAL NORMAL Urine leukocyte esterase detection by dipstick 1+ NEGATIVE Automated urine sediment erythrocyte count by microscopy (number/high power field) NONE NRG Automated urine sediment leukocyte count by microscopy (number/high power field) [HPF] NRG Bacteria detection in urine sediment by light microscopy TRACE NRG Squamous epithelial cells detection in urine sediment by light microscopy 2-5 NRG Crystals detection in urine sediment by light microscopy NONE NRG Casts detection in urine sediment by light microscopy NONE NRG Mucus detection in urine sediment by light microscopy NEGATIVE NRG Complete urinalysis with reflex to culture NO NRG Urine drug screening test - 11/14/16 18:24 Urine phencyclidine detection by screening method NEGATIVE NEGATIVE Urine benzodiazepines detection by screening method POSITIVE NEGATIVE Urine cocaine detection NEGATIVE NEGATIVE Urine amphetamines detection by screening method NEGATIVE NEGATIVE Urine methamphetamine detection by screening method NEGATIVE NEGATIVE Urine cannabinoids detection by screening method NEGATIVE NEGATIVE Urine opiates detection by screening method NEGATIVE NEGATIVE Urine barbiturates detection NEGATIVE NEGATIVE Screening urine tricyclic antidepressants detection NEGATIVE NEGATIVE Urine methadone detection by screening method NEGATIVE NEGATIVE Urine oxycodone detection NEGATIVE NEGATIVE Urine propoxyphene detection NEGATIVE NEGATIVE Cancer Antigen (CA) 15-3 - 01/15/18 14:48 Cancer Antigen 15-3 16.4 U/mL 0.0-25.0 Encounters ACCT No. Visit Date/Time Discharge Status Pt. Type Provider Facility Loc./Unit Complaint [id number] 01/15/2018 14:11:15 01/15/2018 23:59:59 CLS Outpatient Erick Auguste [id number] 01/16/2018 13:06:00 Document Registration [id number] 12/08/2017 17:12:00 12/08/2017 23:59:59 CLS Outpatient SAMARIA LALA DC [facility] RAD NECK PAIN;LOWER BACK PAIN [id number] 12/01/2017 15:33:00 12/01/2017 23:59:59 CLS Outpatient ANN BOWERS DO [facility] RAD YEARLY MAMMOGRAM [id number] 11/14/2016 17:42:00 11/14/2016 19:06:00 DIS Emergency JON ELSY STANLEY [facility] ER PAIN ALL OVER/HEADACHE/SLEEPY/CHEST TIGHTNESS [id number] 08/11/2016 14:45:00 08/11/2016 18:31:00 DIS Emergency ABBY MENENDEZ MD [facility] ER TROUBLE URINATING [id number] 05/06/2016 15:58:00 05/06/2016 23:59:59 CLS Outpatient TRACY NEAL DO [facility] LAB Z98.84,K91.2 [id number] 03/01/2015 20:05:00 03/01/2015 23:01:00 DIS Emergency ALICE SYKES [facility] ER COLD/FLU SYMPTOMS [id number] 12/19/2014 08:03:00 12/19/2014 23:59:59 CLS Outpatient ANN BOWERS DO [facility] LAB DIABETES,FIBROMYALGIA,ARTHRITIS [id number] 09/10/2014 08:50:00 09/10/2014 11:15:00 DIS Emergency ELSY WEBB DO [facility] ER VOMITING,FEVER [id number] 06/28/2014 10:02:00 06/28/2014 23:59:59 CLS Outpatient ANN BOWERS DO [facility] RAD SCREENING [id number] 02/20/2014 12:40:00 02/20/2014 13:42:00 DIS Emergency GLYNN MONGE APRN [facility] ER MIGRAINE [id number] 08/18/2014 09:41:00 Document Registration [id number] 01/28/2018 10:30:00 01/28/2018 23:59:59 [facility] 01/11/10 12/31/2017 16:53:30 12/31/2017 23:59:59 CLS Outpatient
[2018-12-28 00:49] LABS: BILIRUBIN,URINE NEGATIVE (NEGATIVE); CLARITY,URINE CLEAR; COLOR,URINE YELLOW; GLUCOSE, URINE (UA) NEGATIVE (NEGATIVE); KETONES,URINE NEGATIVE (NEGATIVE); LEUKOCYTE ESTERASE ,URINE 2+ (NEGATIVE); NITRITE,URINE NEGATIVE (NEGATIVE); PH,URINE 6 (5-9); PROTEIN,URINE 2+ (NEGATIVE); UROBILINOGEN,URINE 1 MG/DL (NORMAL)
[2018-12-28 00:57] LABS: BASOPHILS % (AUTO) 0 % (0-10); EOSINOPHILS # (AUTO) 0.1 10^3/uL (0.0-0.3); EOSINOPHILS % (AUTO) 1 % (0-10); HEMATOCRIT 41 % (35-52); HEMOGLOBIN 13.7 G/DL (11.5-16.0); LYMPHOCYTES # (AUTO) 2.1 X 10^3 (1.0-4.0); LYMPHOCYTES % (AUTO) 18 % (12-44); MEAN CORPUSCULAR HEMOGLOBIN 30 PG (25-34); MEAN CORPUSCULAR HGB CONC 33 G/DL (32-36); MEAN CORPUSCULAR VOLUME 91 FL (80-99); MEAN PLATELET VOLUME 9.2 FL (7.4-10.4); MONOCYTES # (AUTO) 0.9 X 10^3 (0.0-1.0); MONOCYTES % (AUTO) 7 % (0-12); NEUTROPHILS # (AUTO) 8.5 X 10^3 (1.8-7.8); NEUTROPHILS % (AUTO) 73 % (42-75); PLATELET COUNT 256 10^3/uL (130-400); RED CELL DISTRIBUTION WIDTH 12.5 % (10.0-14.5); WHITE BLOOD COUNT 11.6 10^3/uL (4.3-11.0)
[2018-12-28 01:02] LABS: AMPHETAMINE SCREEN, URINE NEGATIVE (NEGATIVE); BACTERIA,URINE MODERATE /HPF; BARBITURATE SCREEN URINE NEGATIVE (NEGATIVE); BENZODIAZEPINES SCREEN URINE POSITIVE (NEGATIVE); CANNABINOID SCREEN, URINE POSITIVE (NEGATIVE); COCAINE SCREEN URINE NEGATIVE (NEGATIVE); METHADONE STAT NEGATIVE (NEGATIVE); METHAMPHETAMINE SCREEN URINE S NEGATIVE (NEGATIVE); OPIATE SCREEN URINE NEGATIVE (NEGATIVE); OXYCODONE STAT NEGATIVE (NEGATIVE); PROPOXYPHENE STAT NEGATIVE (NEGATIVE); SQUAMOUS EPITHELIAL CELL,UR 0-2 /HPF; TRICYCLIC ANTIDEPRESSANTS SCRE NEGATIVE (NEGATIVE); WBC,URINE 0-2 /HPF
[2018-12-28 01:15] LABS: BUN/CREATININE RATIO 20; CALCIUM 9.1 MG/DL (8.5-10.1); CARBON DIOXIDE 20 MMOL/L (21-32); CHLORIDE 105 MMOL/L (98-107); CREATININE SERUM 0.83 MG/DL (0.60-1.30); GFR ESTIMATED > 60; GLUCOSE 155 MG/DL (70-105); POTASSIUM 3.4 MMOL/L (3.6-5.0); SODIUM 141 MMOL/L (135-145)
[2018-12-28] MEDS ORDERED: ONDANSETRON 4 MG (ZOFRAN) ORAL DISSOLVE TAB SL ONE ×2 (01:15→04:00)
[2018-12-28] MEDS ORDERED: PROMETHAZINE INJ 25 MG/ML (PHENERGAN) AMP IM ONE (01:15)
[2018-12-28 01:16] LABS: ALANINE AMINOTRANSFERASE 21 U/L (0-55); ALBUMIN 4.2 GM/DL (3.2-4.5); ALKALINE PHOSPHATASE 78 U/L (40-136); BILIRUBIN,TOTAL 0.2 MG/DL (0.1-1.0); LIPASE 34 U/L (8-78); SALICYLATE < 5.0 MG/DL (5.0-20.0); TOTAL PROTEIN 7.5 GM/DL (6.4-8.2)
[2018-12-28 01:26] LABS: ACETAMINOPHEN < 10 UG/ML (10-30)
[2018-12-28 01:35] LABS: TSH (THYROID ANALYZER) 1.13 UIU/ML (0.35-4.94)
[2018-12-28] MEDS ORDERED: SCOPOLAMINE 1.5 MG (TRANSDERM-SCOP) PATCH TD ONE (04:00)
--- NOTE | 2018-12-28 05:47 | ED General ---
General Chief Complaint: Substance Abuse Stated Complaint: SUBSTANCE ABUSE Source of Information: Patient Exam Limitations: No Limitations History of Present Illness Date Seen by Provider: Dec 27, 2018 Time Seen by Provider: 23:40 Initial Comments This 48-year-old woman presents to the emergency room with complaints of significant abdominal pain and vomiting after eating edible THC products she obtained in [place] and having mixed drinks. She also reports that she uses Valium daily. She reports taking the THC products to treat her chronic irritable bowel and stomach discomfort. Allergies and Home Medications Allergies Coded Allergies: doxycycline (Verified Allergy, Unknown, 05/29/08) Home Medications Albuterol 17 Gm Inh, NEEDED, (Reported) Aripiprazole 2 Mg Tablet, 2 MG PO DAILY, (Reported) Bisacodyl 10 Mg Supp.rect, 20 MG RC BID PRN for CONSTIPATION Prescribed by: ABBY MENENDEZ on 08/11/161812 Cyclobenzaprine Hcl 10 Mg Tablet, 1 EACH PO BID, (Reported) Diazepam 5 Mg Tablet, 1 TAB PO BID PRN, (Reported) Docusate Sodium 100 Mg Capsule, 100 MG PO BID Prescribed by: ABBY MENENDEZ on 08/11/161812 Hydrocodone Bit/Acetaminophen 1 Each Tablet, 1 EACH PO BID PRN for PAIN, (Rep orted) Meclizine Hcl 25 Mg Tab, 1 TAB PO Q6 PRN, (Reported) Methylprednisolone 4 Mg Tab.ds.pk, 4 MG PO UD Prescribed by: ELSY WEBB on 11/14/161856 Mineral Oil 1 Ea Enem, 1 EA RC BID Prescribed by: ABBY MENENDEZ on 08/11/161812 Ondansetron 8 Mg Tab.rapdis, 8 MG PO Q6H PRN for NAUSEA/VOMITING Prescribed by: ALICE ADAMS on 03/01/15 2243 Ondansetron 4 Mg Tab.rapdis, 4 MG PO Q6H PRN for NAUSEA Prescribed by: ABBY MENENDEZ on 08/11/161812 Ondansetron 4 Mg Tab.rapdis, 4 MG SL Q4H PRN for NAUSEA/VOMITING Prescribed by: JOSE MARTIN GONZALEZ on 12/28/18 0548 Promethazine Hcl 12.5 Mg Tablet, 25 MG PO NEEDED, (Reported) Propranolol Hcl 10 Mg Tablet, 1 EACH PO TID PRN for BLOOD PRESSURE, (Reported) Tramadol HCl 50 Mg Tablet, 50 MG PO TID, (Reported) Patient Home Medication List Home Medication List Reviewed: Yes Review of Systems Review of Systems Constitutional: no symptoms reported EENTM: no symptoms reported Respiratory: no symptoms reported Cardiovascular: no symptoms reported Gastrointestinal: see HPI Genitourinary: no symptoms reported : No Musculoskeletal: no symptoms reported Skin: no symptoms reported Psychiatric/Neurological: No Symptoms Reported Hematologic/Lymphatic: No Symptoms Reported Immunological/Allergic: no symptoms reported Past Gjnurou-Kgipfu-Mbbzyj Hx Past Med/Social Hx: Reviewed and Corrections made Patient Social History Recent Hopitalizations: No Immunizations Up To Date Date of Influenza Vaccine: Apr 23, 2016 Seasonal Allergies Seasonal Allergies: Yes Past Medical History Surgeries: Yes (EXPL LAP, D&C, gastric sleeve) Abdominal, Adenoidectomy, Appendectomy, Gallbladder, Hysterectomy, Oophorectomy, Tonsillectomy Respiratory: Yes Asthma Cardiac: Yes High Cholesterol Neurological: Yes Headaches /Migraines Reproductive Disorders: Yes (ovarian cyst, fluid filled mass in uterus) Female Reproductive Disorders: Ovarian Cyst 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 Sexually Transmitted Disease: No Bladder Infection Gastrointestinal: Yes Gastroesophageal Reflux, Irritable Bowel Musculoskeletal: Yes (CHRONIC GENERALIZED PAIN) Arthritis, Fibromyalgia, Rheumatoid Arthritis, Scoliosis Endocrine: Yes ("GLUCOSE INTOLERANCE" PER PT, OBESITY) Lupus Cancer: No Psychosocial: Yes Anxiety, Bipolar, Depression Integumentary: No Blood Disorders: No Physical Exam Vital Signs Vital Signs - First Documented 12/27/18 12/28/18 23:36 05:57 Temp 98.2 Pulse 70 Resp 20 B/P (MAP) 127/74 (91) Pulse Ox 100 O2 Delivery Room Air Capillary Refill : Height, Weight, BMI Height: 5'3" Weight: 177lbs. 1.6oz. 80.230353zm; 44.28 BMI Method:Stated General Appearance: WD/WN, Mild Distress HEENT: PERRL/EOMI, Normal ENT Inspection Neck: Normal Inspection Respiratory: Lungs Clear, Normal Breath Sounds, No Accessory Muscle Use, No Respiratory Distress Cardiovascular: Regular Rate, Rhythm, No Edema, No Murmur Gastrointestinal: Normal Bowel Sounds, Soft, Tenderness (Generalized) Extremity: Normal Inspection, No Pedal Edema Neurologic/Psychiatric: Alert, Oriented x3, No Motor/Sensory Deficits, Normal Mood/Affect, immigration specialist II-XII Norm as Tested Skin: Normal Color, Warm/Dry Progress/Results/Core Measures Suspected Sepsis SIRS Temperature: Pulse: Respiratory Rate: Blood Pressure / Mean: Results/Orders Lab Results My Orders Orders - JOSE MARTIN CASTREJON MD Im/Sub-Q Injection Non-Ab Ed (12/27/18 ) Medications Given in ED Vital Signs/I&O Capillary Refill : Progress Note : Progress Note Labs were relatively unremarkable. After numerous attempts by numerous nurses IV access cannot be established. I discussed PICC line or IO with the patient. She did not want to exercise either of these options. We treated with sublingual Zofran and IM Phenergan. She still had some refractory nausea. A scopolamine patch was placed. Patient's pain eventually subsided and she was able to tolerate oral clear liquids. She was dismissed home with return precautions. Departure Impression Primary Impression: Nausea and vomiting Qualified Codes: R11.2 - Nausea with vomiting, unspecified Additional Impression: Upper abdominal pain Disposition: HOME, SELF-CARE Condition: Improved Departure-Patient Inst. Decision time for Depature: 05:40 Referrals: ANN BOWERS DO (PCP/Family) Primary Care Physician Patient Instructions: Acute Abdomen (Belly Pain), Adult (DC) Add. Discharge Instructions: Sip continuously on clear liquids today. Gradually advance your diet with small quantities of bland food as tolerated. You may use Zofran as prescribed for control of nausea and vomiting. Return to the ER if you have worsening symptoms. Avoid use of THC products in the future. All discharge instructions reviewed with patient and/or family. Voiced understanding. Scripts Ondansetron (Ondansetron Odt) 4 Mg Tab.rapdis 4 MG SL Q4H PRN for NAUSEA/VOMITING, #10 TAB Prov: JOSE MARTIN CASTREJON MD 12/28/18 Copy Copies To 1: ANN BOWERS JOSHUA T MD Dec 28, 2018 05:47
[2018-12-28] MEDS ORDERED: ONDA4TAB11 SL (05:48)
[2018-12-28 05:57] VITALS: BP 121/73
== END 2018-12-28 05:56 | disposition home or self-care (01) ==
LOC: EDUNIT# 23:36 → ER 23:39
DX: R11.2 Nausea with vomiting, unspecified (principal); R10.10 Upper abdominal pain, unspecified; K58.9 Irritable bowel syndrome, unspecified; J45.909 Unspecified asthma, uncomplicated; E78.00 Pure hypercholesterolemia, unspecified; G43.909 Migraine, unspecified, not intractable, without status migrainosus; K21.9 Gastro-esophageal reflux disease without esophagitis; M06.9 Rheumatoid arthritis, unspecified; M79.7 Fibromyalgia; E66.9 Obesity, unspecified; M32.9 Systemic lupus erythematosus, unspecified; F31.9 Bipolar disorder, unspecified; F41.9 Anxiety disorder, unspecified; Z88.1 Allergy status to other antibiotic agents; Z90.49 Acquired absence of other specified parts of digestive tract; Z90.710 Acquired absence of both cervix and uterus; Z90.89 Acquired absence of other organs
CPT/HCPCS: 36415; 51702; 80053; 80306; 80320; 80329; 81000; 83690; 84443; 85025; 93041; 96372

== ENCOUNTER → 2020-12-01 | Outpatient (CLI) | payer MEDICARE, MEDICAID ==
[~2020-12-01] MED LIST changes: -CIPR500T4 PO; +CIPR500T5 PO; +ONDA4TAB11 SL; -PANT40TA3; +PANT40TA52; -TRAM50TA2 PO; +TRM50T PO
[2020-12-01 11:15] LABS: HEMATOCRIT 37 % (35-52); HEMOGLOBIN 11.8 g/dL (11.5-16.0); MEAN CORPUSCULAR HEMOGLOBIN 31 pg (25-34); MEAN CORPUSCULAR HGB CONC 32 g/dL (32-36); MEAN CORPUSCULAR VOLUME 95 fL (80-99); MEAN PLATELET VOLUME 9.4 fL (9.0-12.2); PLATELET COUNT 244 10^3/uL (130-400)
[2020-12-01 11:38] LABS: ALANINE AMINOTRANSFERASE 29 U/L (0-55); ALBUMIN 4.1 GM/DL (3.2-4.5); ALKALINE PHOSPHATASE 81 U/L (40-136); BILIRUBIN,TOTAL 0.5 MG/DL (0.1-1.0); BUN/CREATININE RATIO 25; CALCIUM 9.6 MG/DL (8.5-10.1); CARBON DIOXIDE 28 MMOL/L (21-32); CHLORIDE 103 MMOL/L (98-107); CHOLESTEROL 137 MG/DL (< 200); CREATININE SERUM 0.79 MG/DL (0.60-1.30); GFR ESTIMATED > 60; GLUCOSE 101 MG/DL (70-105); HDL CHOLESTEROL 65 MG/DL (40-60); POTASSIUM 4.1 MMOL/L (3.6-5.0); SODIUM 139 MMOL/L (135-145); TOTAL PROTEIN 7.6 GM/DL (6.4-8.2); TRIGLYCERIDES 60 MG/DL (<150); VLDL CHOLESTEROL 12 MG/DL (5-40)
== END ==
LOC: LAB 10:40
DX: K91.2 Postsurgical malabsorption, not elsewhere classified (principal); Z98.84 Bariatric surgery status
CPT/HCPCS: 36415; 80053; 80061; 82728; 83540; 83550; 85027

== ENCOUNTER 2021-08-01 13:30 | Emergency (ER) | payer OTHER, MEDICARE, MEDICAID ==
[~2021-08-01] VITALS: Ht 160 cm; Wt 84.0 kg
[~2021-08-01 13:30] MED LIST changes: -PHEN37.53 PO; +PHEN37.58 PO
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
[2021-08-01] MEDS ORDERED: CYCL10TA25 PO (14:15)
[2021-08-01] MEDS: KETOROLAC 30 MG/ML VIAL IM ONE ×2 (14:24→14:26)
[2021-08-01 14:42] VITALS: BP 145/83
== END 2021-08-01 14:41 | disposition home or self-care (01) ==
LOC: EDUNIT# 13:30 → ER 13:32
DX: M54.2 Cervicalgia (principal); J45.909 Unspecified asthma, uncomplicated; K21.9 Gastro-esophageal reflux disease without esophagitis; F31.9 Bipolar disorder, unspecified; F41.9 Anxiety disorder, unspecified; Z79.899 Other long term (current) drug therapy
CPT/HCPCS: 99282

== ENCOUNTER 2023-03-07 19:45 | Emergency (ER) | payer MEDICARE, MEDICAID ==
[~2023-03-07] VITALS: Ht 160 cm; Wt 90.7 kg
[~2023-03-07 19:45] MED LIST changes: +CYCL10TA25 PO
[2023-03-07] MEDS ORDERED: TETRACAINE 0.5% OPHTH SOLN 4 ML BTL (SINGLE DOSE ONLY) OP ONE (20:30)
[2023-03-07] MEDS ORDERED: FLUORESCEIN 1 MG OPHTHALMIC STRIPS OP ONE (20:30)
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
[2023-03-07] MEDS ORDERED: ACHD5005 PO (22:26)
[2023-03-07] MEDS ORDERED: ONDA8TAB13 SL (22:26)
[2023-03-07] MEDS ORDERED: HYDROcodone/ACETAMINOPHEN 5 MG/325 MG TABLET PO ONE (22:30)
[2023-03-07] MEDS ORDERED: RX-ONDANSETRON 4 MG ODT (ZOFRAN) PPK #4 PO ONE (22:30)
[2023-03-07 22:49] VITALS: BP 121/53
== END 2023-03-07 22:49 | disposition home or self-care (01) ==
LOC: EDUNIT# 19:45 → ER 19:49
DX: S05.11XA Contusion of eyeball and orbital tissues, right eye, initial encounter (principal); H54.7 Unspecified visual loss; E66.9 Obesity, unspecified; Z28.310 Unvaccinated for COVID-19; Z68.35 Body mass index [BMI] 35.0-35.9, adult; W22.8XXA Striking against or struck by other objects, initial encounter
CPT/HCPCS: 70480